=== PATIENT | male | born 1940 | race Caucasian/White ===

== ENCOUNTER 2018-10-30 19:56 | Inpatient (IN) ==
--- NOTE | 2018-10-30 20:59 | Emergency Department Note ---
Disposition Clinical Impression: Right leg swelling Altered mental status Qualifiers: Altered mental status type: unspecified Qualified Code(s): R41.82 - Altered mental status, unspecified Disposition: Admitted As Inpatient Condition: Fair Referrals: Ana Simpson MD [Primary Care Provider] - Forms: ED Satisfaction Letter, Work/School Release Time of Disposition: 22:55 General Adult HPI - General Chief complaint: ED General Medical Stated complaint: dementia worse after procedure Time Seen by Provider: 10/30/18 20:18 Source: patient, family Mode of arrival: private vehicle Limitations: no limitations Nursing Notes Reviewed: Yes Vital Signs Reviewed: Yes - History of Present Illness HPI Narrative: 77-year-old male with baseline dementia that had a urologic procedure in same day surgery today he was discharged home after receiving anesthetic, he was sent home on Azo tablets, he became increasingly agitated after he arrived at home. He was having difficulty making a left turn when he tried to make a right turn and he "crumpled" inside of his walker. He then fell a second time in a similar manner and family decided to bring him to the ED for further evaluation. Son at bedside states that he lives with his who is of a similar age and is not really able to help him get up the stairs. Son at bedside thinks that he needs to be admitted for observation, after the procedure as he seems more agitated after the anesthesia. Patient does not have any acute complaints right now except for dysuria. Pain Scale: 0 - Related Data Home Medications Medication Instructions Recorded Confirmed Atorvastatin [Lipitor] 40 mg PO HS 03/26/17 10/30/18 Gabapentin [Neurontin] 900 mg PO HS 03/26/17 10/30/18 Pantoprazole Sodium [Protonix] 40 mg PO DAILY 03/26/17 10/30/18 Pramipexole Di-HCl [Pramipexole 0.125 mg PO HS 03/26/17 10/30/18 Dihydrochloride] Sertraline [Zoloft] 50 mg PO DAILY 03/26/17 10/30/18 Memantine HCl/Donepezil HCl 1 cap PO DAILY 06/21/17 10/30/18 [Namzaric 28 mg-10 mg Capsule] Cyanocobalamin (Vitamin B-12) 1,000 mcg PO DAILY 10/30/18 10/30/18 [Vitamin B-12] Allergies Allergy/AdvReac Type Severity Reaction Status Date / Time hydrochlorothiazide AdvReac decreased Verified 10/30/18 11:15 Na Review of Systems: In addition to that documented in the HPI above, the additional ROS was obtained: Constitutional: Denies fevers or chills Eyes: Denies vision changes ENMT: Denies sore throat CV: Denies chest pain Resp: Denies SOB GI: Denies vomiting or diarrhea : Reports painful urination MSK: Reports two recent mechanical falls Skin: Denies new rashes Neuro: Denies new numbness or tingling or weakness Endocrine: Denies unexpected weight loss Heme: Denies bleeding disorders Past Medical History - Past Medical History Attestation: Yes The following information was validated with the patient. Medical history: Reports: non-contributory, atrial fibrillation, COPD, CVA, DVT, dementia, GERD, hyperlipidemia, hypertension, seizures Surgical history: Reports: cataract, other Psychiatric history: Reports: no psych history - Social History Smoking Status: Former smoker Smokeless Tobacco Status: No Alcohol use: Reports: none Drug use: Reports: none Physical Exam General: A&O x 0. No acute distress. Well developed, well nourished. Head: atraumatic, normocephalic. ENT: No conjunctival injection, no scleral icterus. PERRLA. EOMI. Oropharynx non- erythematous. mucous membranes moist. Neuro: No focal deficits, no speech deficit, no facial droop, mentating well. BUE/BLE Str 5/5. Pulm: Lungs CTAB A/P. No wheezes, rales, ronchi. Cardio: RRR no m/r/g. Chest not tender to palpation. Abd: Soft, non-distended. Normoactive bowel sounds. Non-tender to palpation. No guarding. Non rigid. Extremities: Radial pulses 2+ nancy, dorsalis pedis/posterior tibialis 2+ nancy. No LE edema. No cyanosis, clubbing. Skin: warm, dry, intact. No rashes. Psych: Appropriate mood and affect. Answers questions appropriately. Cooperative with exam. - General Limitations: no limitations General appearance: in no apparent distress Course - Reevaluation(s) Reevaluation #1: Pt was undressed to be changed and RN discovered that right leg was erythematous, swollen, and had 2+ pitting edema that is new since yesterday morning according to family. Pt has been off his plavix for the last several days in preparation for his urinary procedure that was performed today. He will need a lower extremity doppler to rule out blood clot. Time: 22:10 Vital Signs Temperature 98.8 F 10/30/18 20:08 Pulse Rate 89 10/30/18 20:08 Respiratory Rate 16 10/30/18 20:08 Blood Pressure 97/63 10/30/18 20:08 O2 Sat by Pulse Oximetry 93 10/30/18 20:08 Temperature 98.8 F 10/30/18 20:08 Pulse Rate 90 10/30/18 21:23 Respiratory Rate 18 10/30/18 21:23 Blood Pressure 142/59 10/30/18 21:23 O2 Sat by Pulse Oximetry 94 10/30/18 21:23 Oxygen Delivery Oxygen Delivery Room Air Medical Decision Making - MDM Narrative Medical decision making narrative: Patient's lab work did reveal an elevated creatinine above baseline as well as a worsening GFR, however this was not clinically significant. Head CT did not reveal any acute intracranial abnormalities. EKG did not show any acute signs of ischemia. However patient was felt to be unsafe in his current living situation, the people who care for him at home were unable to care for him in his current state. Patient was more combative after the procedure, and had worsening altered mental status from baseline dementia. Patient was admitted to the hospitalist Dr. Vo, who agreed to accept the pt to their service. Family at bedside was given an opportunity to ask questions and all of their concerns were addressed. Family at bedside agreed to the plan of care. Pt remained stable while in the department. - Medical Records Medical records reviewed: Yes I reviewed the patient's medical records. - Lab Data Lab results reviewed: Yes I reviewed the patient's lab results. Result diagrams: 10/30/18 20:53 10/30/18 20:53 Lab Results 10/30/18 10/30/18 Range/Units 20:53 20:53 WBC 10.2 D (4.3-11.1) K/mcL RBC 3.96 L (4.19-5.50) M/mcL Hgb 12.8 L (12.9-16.9) g/dL Hct 39.3 (37.5-50.1) % MCV 99.2 (83.0-100.0) fL MCH 32.3 (28.0-33.3) pg MCHC 32.6 (31.6-35.5) g/dL RDW 13.0 (11.5-14.5) % Plt Count 98 L (140-400) K/mcL MPV 10.9 (9.4-12.4) fL Immature Gran % 0.4 (0-4) % Seg Neutrophils % 87.0 % Lymphocytes % 5.6 % Monocytes % 6.8 % Eosinophils % 0.0 % Basophils % 0.2 % Neutrophils # 8.9 (1.6-8.9) K/mcL Lymphocytes # 0.6 (0.6-4.6) K/mcL Monocytes # 0.7 (0.0-1.3) K/mcL Eosinophils # 0.0 (0.0-0.6) K/mcL Basophils # 0.0 (0.0-0.2) K/mcL Sodium 147 H (136-145) mEq/L Potassium 4.8 (3.5-5.1) mEq/L Chloride 111 H (98-107) mEq/L Carbon Dioxide 23 (23-29) mEq/L BUN 36 H (8-23) mg/dL Creatinine 1.96 H (0.70-1.30) mg/dL Est GFR ( Amer) 40 L (> 60) Est GFR (Non-Af Amer) 33 L (> 60) BUN/Creatinine Ratio 18 (6-26) Glucose 144 H (70-105) mg/dL Calculated Osmolality 315 H (280-300) Calcium 9.7 (8.6-10.3) mg/dL Troponin I < 0.03 (< 0.04) ng/mL - Radiology Data Radiology results reviewed: Yes I reviewed the patient's radiology results. Chest X-Ray 10/30/18 20:53 IMPRESSION: Mild nonspecific left basilar opacities compatible with atelectasis versus pneumonia. D/ / Shane Mg MD / Shane Mg MD Interpreting Provider: Shane Mg MD Head CT 05/21/19 20:53 IMPRESSION: No acute intracranial abnormality. D/ / Debbie Carty Cha, MD / Debbie Carty Cha, MD Interpreting Provider: Debbie Carty Cha, MD - EKG Data EKG #1 EKG attestation: Yes I reviewed and interpreted this EKG. EKG results narrative: Heart rate 85, rhythm sinus, axis borderline left at -27. [place] 233 and prolonged, QRS 146 and prolonged, QTc 463. Atrial premature complexes are present with short RR intervals. Right bundle branch block. Previous EKG from 10/25/2018 does not show a right bundle branch block and does not show atrial premature complexes. There are T-wave abnormalities present in leads V2, V3, V4, 3. There is no clinically significant ST elevation or depression. Attestation Statement - Attestation Attestation: I, Morris Amezquita DO, examined this patient hisr-as-erum and my medical decision-making was reviewed with Dr. Aracelis Story, Resident Physician. I agree with the documented findings, disposition and treatment plan as described except to the extent set forth below. I personally supervised and was present for the martinez/critical portions of the procedures completed by the resident documented below. Please see my progress notes for details.
[2018-10-30 21:49] LABS: Basophils % 0.2 %; Hematocrit 39.3 % (37.5-50.1); Hemoglobin 12.8 g/dL (12.9-16.9); Immature Granulocytes % 0.4 % (0-4); Lymphocytes # 0.6 K/mcL (0.6-4.6); Lymphocytes % 5.6 %; Mean Corpuscular HGB Conc 32.6 g/dL (31.6-35.5); Mean Corpuscular Hemoglobin 32.3 pg (28.0-33.3); Mean Corpuscular Volume 99.2 fL (83.0-100.0); Mean Platelet Volume 10.9 fL (9.4-12.4); Monocytes # 0.7 K/mcL (0.0-1.3); Monocytes % 6.8 %; Neutrophils # 8.9 K/mcL (1.6-8.9); Red Blood Count 3.96 M/mcL (4.19-5.50)
[2018-10-30 21:50] LABS: Platelet Count 98 K/mcL (140-400)
--- NOTE | 2018-10-30 21:57 | Emergency Department Note ---
Disposition Clinical Impression: Altered mental status, Right leg swelling, DVT (deep venous thrombosis), Acute hypernatremia Disposition: Admitted As Inpatient Condition: Fair Referrals: Ana Simpson MD [Primary Care Provider] - Forms: ED Satisfaction Letter, Work/School Release Time of Disposition: 23:09 General Adult HPI - General Chief complaint: ED General Medical Stated complaint: dementia worse after procedure Time Seen by Provider: 10/30/18 20:18 Source: patient, family Mode of arrival: private vehicle Limitations: no limitations - History of Present Illness Pain Scale: 0 - Related Data Home Medications Medication Instructions Recorded Confirmed Atorvastatin [Lipitor] 40 mg PO HS 03/26/17 10/30/18 Gabapentin [Neurontin] 900 mg PO HS 03/26/17 10/30/18 Pantoprazole Sodium [Protonix] 40 mg PO DAILY 03/26/17 10/30/18 Pramipexole Di-HCl [Pramipexole 0.125 mg PO HS 03/26/17 10/30/18 Dihydrochloride] Sertraline [Zoloft] 50 mg PO DAILY 03/26/17 10/30/18 Memantine HCl/Donepezil HCl 1 cap PO DAILY 06/21/17 10/30/18 [Namzaric 28 mg-10 mg Capsule] Cyanocobalamin (Vitamin B-12) 1,000 mcg PO DAILY 10/30/18 10/30/18 [Vitamin B-12] Allergies Allergy/AdvReac Type Severity Reaction Status Date / Time hydrochlorothiazide AdvReac decreased Verified 10/30/18 11:15 Na Past Medical History - Past Medical History Medical history: Reports: non-contributory, atrial fibrillation, COPD, CVA, DVT, dementia, GERD, hyperlipidemia, hypertension, seizures Surgical history: Reports: cataract, other Psychiatric history: Reports: no psych history - Social History Smoking Status: Former smoker Smokeless Tobacco Status: No Alcohol use: Reports: none Drug use: Reports: none Physical Exam - General Limitations: no limitations General appearance: in no apparent distress Course Vital Signs Temperature 98.8 F 10/30/18 20:08 Pulse Rate 89 10/30/18 20:08 Respiratory Rate 16 10/30/18 20:08 Blood Pressure 97/63 10/30/18 20:08 O2 Sat by Pulse Oximetry 93 10/30/18 20:08 Temperature 98.8 F 10/30/18 20:08 Pulse Rate 90 10/30/18 21:23 Respiratory Rate 18 10/30/18 21:23 Blood Pressure 142/59 10/30/18 21:23 O2 Sat by Pulse Oximetry 94 10/30/18 21:23 Oxygen Delivery Oxygen Delivery Room Air Medical Decision Making - Lab Data Result diagrams: 10/30/18 20:53 10/30/18 20:53 Lab Results 10/30/18 10/30/18 Range/Units 20:53 20:53 WBC 10.2 D (4.3-11.1) K/mcL RBC 3.96 L (4.19-5.50) M/mcL Hgb 12.8 L (12.9-16.9) g/dL Hct 39.3 (37.5-50.1) % MCV 99.2 (83.0-100.0) fL MCH 32.3 (28.0-33.3) pg MCHC 32.6 (31.6-35.5) g/dL RDW 13.0 (11.5-14.5) % Plt Count 98 L (140-400) K/mcL MPV 10.9 (9.4-12.4) fL Immature Gran % 0.4 (0-4) % Seg Neutrophils % 87.0 % Lymphocytes % 5.6 % Monocytes % 6.8 % Eosinophils % 0.0 % Basophils % 0.2 % Neutrophils # 8.9 (1.6-8.9) K/mcL Lymphocytes # 0.6 (0.6-4.6) K/mcL Monocytes # 0.7 (0.0-1.3) K/mcL Eosinophils # 0.0 (0.0-0.6) K/mcL Basophils # 0.0 (0.0-0.2) K/mcL Sodium 147 H (136-145) mEq/L Potassium 4.8 (3.5-5.1) mEq/L Chloride 111 H (98-107) mEq/L Carbon Dioxide 23 (23-29) mEq/L BUN 36 H (8-23) mg/dL Creatinine 1.96 H (0.70-1.30) mg/dL Est GFR ( Amer) 40 L (> 60) Est GFR (Non-Af Amer) 33 L (> 60) BUN/Creatinine Ratio 18 (6-26) Glucose 144 H (70-105) mg/dL Calculated Osmolality 315 H (280-300) Calcium 9.7 (8.6-10.3) mg/dL Troponin I < 0.03 (< 0.04) ng/mL Attestation Statement - Attestation Attestation: I, Morris Amezquita DO, examined this patient [id number] and my medical decision-making was reviewed with Dr. Aracelis Story, Resident Physician. I agree with the documented findings, disposition and treatment plan as described except to the extent set forth below. I personally supervised and was present for the martinez/critical portions of the procedures completed by the resident documented below. Please see my progress notes for details. 77-year-old male presents emergency room for evaluation of progression of his dementia. Patient was evaluated today for urologic related issue and had a pro cedure performed under some type of anesthetic. Since any set worsening confusion. Family is also concerned that he had acute onset of swelling in his right leg as well as several other vague complaints. Patient is chronically demented at baseline secondary to strokes in the past. He does have a history of DVTs. The patient's family is denying any recent complaint of chest pain shortness of breath headache vision changes nausea vomiting or diarrhea. No fevers no chills. He has not had any falls trauma or injury. On physical exam the gentleman is resting in the bed. His head is atraumatic. His pupils are round reactive. He has no pain with movement of the neck. Lungs are clear. H eart is regular. Abdomen is soft. He does have mild discomfort but no point tenderness guarding or rigidity on evaluation of the abdominal exam. Extremities otherwise normal this time. Right lower extremity is slightly more swollen from the mid thigh down to the right foot. He does have palpable DP and PT pulses that are symmetrical bilaterally in both feet are normal in coloration. Detailed workup including CT the head CBC chemistry urinalysis will be completed along with Doppler study of the leg. Dependent upon the results of the imaging modalities and the workup the patient will most likely require admission. Patient is otherwise clinically stable this time. See detailed documentation of the physical exam, medical intervention, medical decision- making and disposition in the resident physician's note. No critical care provider the patient's treatment course at this time. 2245 Patient has newly elevated sodium as well as increasing creatinine. All these are after the procedures performed here today. Because of the progression of the dementia most likely secondary to medications as well as a lab abnormalities patient will be admitted for monitoring. Urinalysis and Doppler study are still pending. The hospitalist Dr. brock reviewed the case and no other questions or concerns at this time. He is aware of the lab as well as the ultrasound study being pending. He is accepted the patient there service. He will monitor the patient. Patient will be monitored here in the emergency department until the admission process is completed. Patient is otherwise clinically stable. [address] [employer] Teacher says that the patient has new clot from the groin all the way d own into the leg. Heparin standard dose will be ordered at this time. Urinalysis is still pending. Definitive management will be completed in the inpatient setting. Patient has been accepted to the hospital service started at this time.
[2018-10-30 22:08] LABS: BUN/Creatinine Ratio 18 (6-26); Blood Urea Nitrogen 36 mg/dL (8-23); Calcium 9.7 mg/dL (8.6-10.3); Carbon Dioxide 23 mEq/L (23-29); Chloride 111 mEq/L (98-107); Glucose 144 mg/dL (70-105); Osmolality,Calculated 315 (280-300); Potassium 4.8 mEq/L (3.5-5.1); Sodium 147 mEq/L (136-145); Troponin I < 0.03 ng/mL (< 0.04); eGFR For Non-African Americans 33 (> 60)
[2018-10-30] MEDS ORDERED: *HR* Heparin 5,000 UNIT/ML VIAL IVP PRN ×2 (23:08)
[2018-10-30] MEDS ORDERED: *HR* Heparin 5,000 UNIT/ML VIAL IVP ONE (23:08)
[2018-10-30 23:31] LABS: Hematocrit 37.3 % (37.5-50.1); Immature Platelets 4.9 % (1.1-6.1); Mean Corpuscular HGB Conc 32.2 g/dL (31.6-35.5); Mean Corpuscular Hemoglobin 32.1 pg (28.0-33.3); Mean Corpuscular Volume 99.7 fL (83.0-100.0); Mean Platelet Volume 10.6 fL (9.4-12.4); Red Blood Count 3.74 M/mcL (4.19-5.50)
[2018-10-30 23:45] LABS: Heparin anti-factor XA UFH 0.05 IU/mL (0.30-0.70); INR 1.3; Prothrombin Time 14.6 Seconds (9.4-12.1)
[2018-10-31] MEDS: Heparin 25,000 UNIT/250 ML D5W 25,000 UNIT/250 ML IV.SOLN IVC SCH ×2 (00:21→22:37)
[2018-10-31] MEDS ORDERED: Naloxone 0.4 MG/ML INJ IVP PRN (00:31)
--- NOTE | 2018-10-31 00:47 | Internal Med History&Physical ---
<Yelena Rodriguez E - Last Filed: 10/31/18 02:23> Date of Encounter: 10/31/18 Time of Encounter: 00:10 Internal Medicine - H&P: HPI Chief complaint: Altered mental status/agitation Admitted From: Home Plans for Post Hospital Care: Home History of present illness: Mr. Marcos is a 77 year old male with past medical history of atrial fibrillation, COPD, CVA, DVT, dementia, GERD, hyperlipidemia, hypertension, seizures. Patient presented to the ED tonight his family. Family stated that the ED physician that the patient had seemed more agitated and altered sense his bladder cancer resection earlier today. Patient received to this resection this morning under general anesthesia with no acute complications. Patient was said to have a having trouble walking since getting home as well as seeming more confused and agitated. Patient was noted to have right lower extremity swelling and Doppler indicated that he had a DVT. He was started on heparin in the ED. Patient had been off his Plavix in order to have his procedure on this morning. Venous Doppler:Right lower extremity venous duplex appears to be positive for acute DVT in the iliac, cfv, sfv, popliteal, and peroneal veins. Appears posit shady for acute SVT in the gsv and lsv. Head CT showed that there is no acute intracranial abnormality Chest x-ray showed mild nonspecific left basilar opacities compatible with atelectasis versus pneumonia EKG done in the ED showed no sign of any acute ischemia Patient had no complaints tonight on exam. He stated that he had just been feeling down and blue. He states he has been feeling more down since his seizure this morning. He also states that he did not sleep well prior to his procedure and is very tired tonight. Patient was awake and alert to person and place but not to why he was here. Patient denied any chest pain, abdominal pain, shortness of breath, dizziness/lightheadedness, weakness. Patient was admitted for DVT and ultimate mental status Social history: Patient denies tobacco use, alcohol use, illicit drug use Family history: Patient denies any pertinent family history CODE STATUS was discussed with the patient and he stated that he did not want chest compressions done if his heart were to stop and also did not want to be intubated. He stated that if his heart stops to "just let me go ". Past Med Surg Social Fam HX - Past Medical History Medical history: non-contributory, atrial fibrillation, COPD, CVA, DVT, dementia, GERD, hyperlipidemia, hypertension, seizures Additional medical history: bladder tumor. history of CVA s/p TPA with bleeding complication 2005 x2. pectus excavatum. colon polyp- hyperplastic. stroke x2. LLE DVT. allergic rhinitis. PVC's. depression. subclavian steel syn left arm. CVA brainstem. spontanious pneumothorax. stomach ulcer. aortic stenosis. bilateral toe ulcerations of unclear eitiology. diverticulosis. colon tubular adenoma. bladder tumor Psychiatric history: no psych history - Past Surgical History Surgical History: cataract, other Additional surgical history: blood clot on brain from CVA - Social History Smoking Status: Former smoker Smokeless Tobacco Status: No Alcohol use: none Drug use: none Internal Medicine - H&P: Meds Atorvastatin [Lipitor] 40 mg PO HS 03/26/17 [History] Gabapentin [Neurontin] 900 mg PO HS 03/26/17 [History] Pantoprazole Sodium [Protonix] 40 mg PO DAILY 03/26/17 [History] Pramipexole Di-HCl [Pramipexole Dihydrochloride] 0.125 mg PO HS 03/26/17 [History] Sertraline [Zoloft] 50 mg PO DAILY 03/26/17 [History] Memantine HCl/Donepezil HCl [Namzaric 28 mg-10 mg Capsule] 1 cap PO DAILY 06/21/17 [History] Cyanocobalamin (Vitamin B-12) [Vitamin B-12] 1,000 mcg PO DAILY 10/30/18 [History] Allergy/AdvReac Type Severity Reaction Status Date / Time hydrochlorothiazide AdvReac decreased Verified 10/30/18 11:15 Na All Systems PM: A 10-system review of systems was performed and is negative for pertinent findings except as documented above in the HPI. - Constitutional Constitutional: no anorexia, no chills, no fever(s), no weakness - EENT Eyes: no change in vision, no seeing flashes Nose, mouth and throat: no dysphagia, no nasal congestion, no sinus pain, no s inus pressure, no sore throat - Cardiovascular Cardiovascular ROS IM: edema (Right leg), no chest pain, no dyspnea - Respiratory Respiratory: no cough, no dyspnea, no wheezing, no change in phlegm color - Gastrointestinal Gastrointestinal: no abdominal pain, no constipation, no diarrhea, no nausea, no vomiting - Genitourinary Genitourinary ROS male: urinary urgency, no flank pain, no urinary frequency, no urinary hesitancy - Musculoskeletal Musculoskeletal ROS IM: no arthralgias, no back pain, no joint swelling - Integumentary Integumentary IM: no new lesions, no pruritus, no rash - Constitutional Vitals: Temp Pulse Resp BP Pulse Ox 98.8 F 82 18 107/86 94 10/30/18 20:08 10/31/18 00:13 10/31/18 00:13 10/31/18 00:13 10/31/18 00:13 Exam: General: Alert and oriented to person and place but not to disposition, answers questions appropriately, no acute distress Head: normocephalic, atraumatic Eyes: CACHORRO, no icterus Mouth: Mucous membranes moist Neck: Trachea midline, no lymphadenopathy Cardio: RRR, no mumurs, rubs, or gallops Respiratory: CTAB, no wheezing, rhonchi, rales Abd: normal bowel sounds, no gaurding or rigidity Extremties: Right lower extremity swelling noted from the groin to the ankle, nonpitting, nontender. pulses equal bilaterally, warm Skin: warm, dry, intact Internal Med - H&P Results - Labs CBC & Chem 7: 10/30/18 23:19 10/30/18 20:53 Labs: Short CBC 10/30/18 10/30/18 Range/Units 20:53 23:19 WBC 10.2 D 9.6 (4.3-11.1) K/mcL Hgb 12.8 L 12.0 L (12.9-16.9) g/dL Hct 39.3 37.3 L (37.5-50.1) % Plt Count 98 L 92 L (140-400) K/mcL Neutrophils # 8.9 (1.6-8.9) K/mcL BMP 10/30/18 20:53 Sodium 147 H Potassium 4.8 Chloride 111 H Carbon Dioxide 23 BUN 36 H Creatinine 1.96 H Glucose 144 H Calcium 9.7 Cardiac Enzymes 10/30/18 Range/Units 20:53 Troponin I < 0.03 (< 0.04) ng/mL - Impressions ITS Impressions Chest X-Ray 10/30/18 20:53 IMPRESSION: Mild nonspecific left basilar opacities compatible with atelectasis versus pneumonia. D/ / Shane Mg MD / Shane Mg MD Interpreting Provider: Shane Mg MD Head CT 10/30/18 20:53 IMPRESSION: No acute intracranial abnormality. D/ / Debbie Carty Cha, MD / Debbie Carty Cha, MD Interpreting Provider: Debbie Carty Cha, MD - Assessment and Plan (1) Altered mental status Current Visit: Yes Status: Acute Assessment and plan: Patient had been more agitated since returning home from procedure this morning Patient had bladder cancer biopsy done this morning under general anesthesia Family reported the ED physician that the patient was more agitated and was having trouble getting around when he got home today. Patient was pleasant at bedside with only complaint of being feeling down/blue This is likely secondary to anesthesia but could also be due to laboratory abnormalities including hypernatremia We will continue to monitor patient We will restart patient's home dementia medications We will correct patient's sodium Qualifiers: Altered mental status type: unspecified Qualified Code(s): R41.82 - Altered mental status, unspecified (2) DVT (deep venous thrombosis) Current Visit: Yes Status: Acute Assessment and plan: Patient was noted to have right leg swelling Family stated that this started one day ago Patient has been off his Plavix due to his bladder cancer biopsy done this morning Venous Doppler showed Right lower extremity venous duplex appears to be positive for acute DVT in the iliac, cfv, sfv, popliteal, and peroneal veins. Appears positive for acute SVT in the gsv and lsv. Heparin drip started Qualifiers: DVT location: lower extremity Affected thrombotic vein of extremity: other lower extremity vein Chronicity: acute Laterality: right Qualified Code(s): I82.491 - Acute embolism and thrombosis of other specified deep vein of right lower extremity (3) Acute hypernatremia Current Visit: Yes Status: Acute Assessment and plan: Patient's sodium noted to be 147 today Patient is approximately 3 L down on fluids Start D5 W at a rate of 250 mils per hour with sodium check after one hour after starting fluids Once patient's sodium is low 145 we will decrease rate to 90 mils per hour until corrected to 140 Sodium checks every hour (4) CAD (coronary artery disease) Current Visit: Yes Status: Acute Assessment and plan: Patient on home atorvastatin We will restart patient's home medication Qualifiers: Coronary Disease-Associated Artery/Lesion type: unspecified vessel or lesion type [place] vs. transplanted heart: [place] heart Associated angina: without angina Qualified Code(s): I25.10 - Atherosclerotic heart disease of [place] coronary artery without angina pectoris (5) Dementia Current Visit: Yes Status: Acute Assessment and plan: Patient has history of dementia On Mementine HCL/Donepezil HCL, Pramipexole Di-HVL, Sertraline We will restart patient's home medications Qualifiers: Dementia type: unspecified type Dementia behavioral disturbance: without behavioral disturbance Qualified Code(s): F03.90 - Unspecified dementia withou t behavioral disturbance (6) GERD (gastroesophageal reflux disease) Current Visit: Yes Status: Acute Assessment and plan: Patient on Protonix 40 mg daily We will restart his medication Qualifiers: Esophagitis presence: esophagitis presence not specified Qualified Code(s): K21.9 - Gastro-esophageal reflux disease without esophagitis (7) WILBUR (acute kidney injury) Current Visit: Yes Status: Acute Assessment and plan: Possibly due to patient's fluid status We will replace fluids as above Continue monitor creatinine (8) DVT prophylaxis Current Visit: Yes Status: Acute Assessment and plan: Patient currently on heparin drip for DVT - Time Spent With Patient Total time spent is greater than 50% in coordination of care (as documented) at patient's floor/unit and/or counseling patient: <Tammy Rendon A - Last Filed: 10/31/18 03:51> Date of Encounter: 10/31/18 Internal Medicine - H&P: HPI History of present illness: Mr. Marcos is a 77 year old male All Systems PM: A 10-system review of systems was performed and is negative for pertinent findings except as documented above in the HPI. - Constitutional Vitals: Temp Pulse Resp BP Pulse Ox 98.1 F 73 16 96/58 94 10/31/18 01:26 10/31/18 01:26 10/31/18 01:26 10/31/18 01:26 10/31/18 01:26 Internal Med - H&P Results - Labs CBC & Chem 7: 10/30/18 23:19 10/30/18 20:53 Labs: Short CBC 10/30/18 10/30/18 Range/Units 20:53 23:19 WBC 10.2 D 9.6 (4.3-11.1) K/mcL Hgb 12.8 L 12.0 L (12.9-16.9) g/dL Hct 39.3 37.3 L (37.5-50.1) % Plt Count 98 L 92 L (140-400) K/mcL Neutrophils # 8.9 (1.6-8.9) K/mcL BMP 10/30/18 20:53 Sodium 147 H Potassium 4.8 Chloride 111 H Carbon Dioxide 23 BUN 36 H Creatinine 1.96 H Glucose 144 H Calcium 9.7 Cardiac Enzymes 10/30/18 Range/Units 20:53 Troponin I < 0.03 (< 0.04) ng/mL - Impressions ITS Impressions Chest X-Ray 10/30/18 20:53 IMPRESSION: Mild nonspecific left basilar opacities compatible with atelectasis versus pneumonia. D/ / Shane Mg MD / Shane Mg MD Interpreting Provider: Shane Mg MD Head CT 10/30/18 20:53 IMPRESSION: No acute intracranial abnormality. D/ / Debbie Carty Cha, MD / Debbie Carty Cha, MD Interpreting Provider: Debbie Catry Cha, MD - Time Spent With Patient Total time spent is greater than 50% in coordination of care (as documented) at patient's floor/unit and/or counseling patient: - Attending Attestation I performed a history and physical examination of the patient and discussed their management with the resident. I reviewed the resident's note and agree with the documented plan of care. In short patient is a 69-year-old male with a past medical history of atrial fibrillation, COPD, CVA, dementia and DVT among others who presented to the ED with change in mental status from baseline. No family members were at bedside at the time of my assessment so I was unable to ascertain what patient's baseline is. Per report patient had resection of a bladder tumor earlier today under some sort of anesthetic. Patient apparently went home afterwards and per family members appeared to be agitated and confused and was subsequently brought into the ED for further evaluation. On arrival patient was afebrile, hemodynamically stable. Laboratory workup was relatively unremarkable aside from mild hypernatremia 147 and mild elevation in patient's creatinine from baseline. Imaging of the head was unremarkable and chest x-ray did not show any acute pulmonary abnormalities. Further assessment in the ED noted right lower extremity swelling markedly more than the left. Doppler was performed which was positive for DVT. Patient was subsequent restarted on heparin drip. On my assessment patient is alert oriented 1. No evidence of any focal deficits. Low clinical suspicion for an infectious etiology. Suspect acute encephalopathy on top of patient's normal baseline dementia is likely secondary to anesthetic in the setting of recent procedure earlier this morning. Dehydration and mild degree of uremia may be contributed to patient's AMS. Given patient's hypernatremia and elevated creatinine will give D5 water to correct hypernatremia based on his fluid deficit of 2-3 L. We will check sodium every 1-2 hours. We will obtain a urinalysis. Continue heparin drip for DVT.
[2018-10-31] MEDS: D5% in Water 1,000 ML IVC SCH ×4 (02:40→21:07)
[2018-10-31 04:41] LABS: Immature Granulocytes % 0.4 % (0-4); Mean Corpuscular HGB Conc 32.5 g/dL (31.6-35.5); Segmented Neutrophils % 80.7 %
[2018-10-31 04:43] LABS: Basophils % 0.1 %; Eosinophils % 0.4 %; Hematocrit 33.8 % (37.5-50.1); Immature Platelets 4.5 % (1.1-6.1); Lymphocytes # 0.9 K/mcL (0.6-4.6); Lymphocytes % 9.6 %; Mean Corpuscular Hemoglobin 32.3 pg (28.0-33.3); Mean Corpuscular Volume 99.1 fL (83.0-100.0); Mean Platelet Volume 11.3 fL (9.4-12.4); Monocytes # 0.8 K/mcL (0.0-1.3); Monocytes % 8.8 %; Neutrophils # 7.2 K/mcL (1.6-8.9); Red Blood Count 3.41 M/mcL (4.19-5.50); Red Cell Distribution Width 12.9 % (11.5-14.5)
[2018-10-31 04:46] LABS: Platelet Count 91 K/mcL (140-400)
[2018-10-31 05:01] LABS: Albumin 3.9 g/dL (3.5-5.7); Albumin/Globulin Ratio 1.9 (1.1-2.2); Bilirubin,Total 0.6 mg/dL (0.3-1.0); Calcium 9.1 mg/dL (8.6-10.3); Globulin 2.1 g/dL (2.4-3.5); Potassium 3.9 mEq/L (3.5-5.1)
--- NOTE | 2018-10-31 09:50 | Urology - Consult Note ---
<Daphnie Johnson N - Last Filed: 10/31/18 09:47> Date of Encounter: 10/31/18 Time of Encounter: 09:30 - Assessment and Plan (1) Bladder tumor Current Visit: Yes Status: Acute Assessment and plan: Patient is a 77-year-old male who presents one day status post TURBT with Dr. Devries. Patient was diagnosed with DVT of the right lower extremity yesterday afternoon, and he was subsequently started on Heparin drip. We may expect some increased hematuria due to anticoagulation, although, resection site is small. Patient is currently voiding without difficulty. We will plan to obtain a bladder scan, and if this is reassuring, he may continue without a catheter. Urology CN:HPI Consult date: 10/31/18 Reason for consult Urology: Other (postoperative day one from TURBT; Acute RLE DVT on anticoagulation) Requesting physician: Chris Vasquez History of present illness: Patient is a 77-year-old male with a past medical history significant for dementia, CVA, DVT, and atrial fibrillation who presents one day postoperative from a small resection TURBT with complaints of altered mental status and right lower extremity edema and pain. Patient's son reports patient experienced worsening mentation with agitation and difficulty walking. Patient was evaluated in the emergency department and found to have a DVT of the right lower extremity. Patient was subsequently placed on heparin drip and admitted to the hospitalist service. Patient underwent small transurethral resection of bladder tumor with mitomycin instillation yesterday morning with Dr. Devries. Patient sustained no complication with surgery, his postoperative course was relatively unremarkable, and he was dismissed in satisfactory condition. Patient is unable to answer pointed questions, but nursing staff reports gross hematuria in attends briefs. Family history noncontributory. Bladder scan is pending. Past Med Surg Social Fam HX - Past Medical History Medical history: non-contributory, atrial fibrillation, COPD, CVA, DVT, dementia, GERD, hyperlipidemia, hypertension, seizures Additional medical history: bladder tumor. history of CVA s/p TPA with bleeding complication 2005 x2. pectus excavatum. colon polyp- hyperplastic. stroke x2. LLE DVT. allergic rhinitis. PVC's. depression. subclavian steel syn left arm. CVA brainstem. spontanious pneumothorax. stomach ulcer. aortic stenosis. bilateral toe ulcerations of unclear eitiology. diverticulosis. colon tubular adenoma. bladder tumor Psychiatric history: no psych history - Past Surgical History Surgical History: cataract, other Additional surgical history: blood clot on brain from CVA - Social History Smoking Status: Former smoker Smokeless Tobacco Status: No Alcohol use: none Drug use: none - Additional Family History Additional family history: No known documented family history of malignancy Medications and Allergies Atorvastatin [Lipitor] 40 mg PO HS 03/26/17 [History] Gabapentin [Neurontin] 900 mg PO HS 03/26/17 [History] Pantoprazole Sodium [Protonix] 40 mg PO DAILY 03/26/17 [History] Pramipexole Di-HCl [Pramipexole Dihydrochloride] 0.125 mg PO HS 03/26/17 [History] Sertraline [Zoloft] 50 mg PO DAILY 03/26/17 [History] Memantine HCl/Donepezil HCl [Namzaric 28 mg-10 mg Capsule] 1 cap PO DAILY 06/21/17 [History] Cyanocobalamin (Vitamin B-12) [Vitamin B-12] 1,000 mcg PO DAILY 10/30/18 [History] Allergy/AdvReac Type Severity Reaction Status Date / Time hydrochlorothiazide AdvReac decreased Verified 10/30/18 11:15 Na Review of Systems ROS unobtainable: due to mental status Exam Initial Vital Signs Temp Pulse Resp BP Pulse Ox 98.8 F 89 16 97/63 93 10/30/18 20:08 10/30/18 20:08 10/30/18 20:08 10/30/18 20:08 10/30/18 20:08 - General physical appearance Present: no distress, no pain - Eyes Present: PERRL, normal ocular movement - ENT Present: no congestion, decreased hearing - Neck Present: no masses, trachea midline, no lymphadenopathy - Respiratory Present: normal respiratory effort - Cardiovascular Cardiovascular exam IM: RRR - Abdomen Abdomen: Present: soft, non tender. Absent: distended - Genitourinary other (blood tinged urine in attends; no clots identified ) - Integumentary Present: no rash, no abnormal pigmentation - Neurologic Present: disoriented, confused - Musculoskeletal Present: other (normal posture; RLE erythma and edema ) Urology Results - Labs 10/31/18 04:16 10/31/18 08:27 Abnormal lab results RBC 3.41 M/mcL (4.19-5.50) L 10/31/18 04:16 Hgb 11.0 g/dL (12.9-16.9) L 10/31/18 04:16 Hct 33.8 % (37.5-50.1) L 10/31/18 04:16 Plt Count 91 K/mcL (140-400) L 10/31/18 04:16 PT 14.6 Seconds (9.4-12.1) H 10/30/18 23:19 APTT 23.8 Seconds (26.0-36.0) L 10/30/18 23:19 Heparin Anti-Xa, Unfract 1.52 IU/mL (0.30-0.70) H* 10/31/18 07:13 Sodium 146 mEq/L (136-145) H 10/31/18 04:16 Chloride 111 mEq/L (98-107) H 10/31/18 04:16 BUN 37 mg/dL (8-23) H 10/31/18 04:16 1.86 mg/dL (0.70-1.30) H 10/31/18 04:16 Est GFR ( Amer) 43 (> 60) L 10/31/18 04:16 Est GFR (Non-Af Amer) 35 (> 60) L 10/31/18 04:16 Glucose 181 mg/dL (70-105) H 10/31/18 04:16 315 (280-300) H 10/31/18 04:16 ALT 4 Units/L (7-52) L 10/31/18 04:16 6.0 g/dL (6.4-8.9) L 10/31/18 04:16 2.1 g/dL (2.4-3.5) L 10/31/18 04:16 Diabetes panel 10/30/18 10/31/18 10/31/18 Range/Units 20:53 04:16 08:27 Sodium 147 H 146 H 143 (136-145) mEq/L Potassium 4.8 3.9 (3.5-5.1) mEq/L Chloride 111 H 111 H (98-107) mEq/L Carbon Dioxide 23 25 (23-29) mEq/L BUN 36 H 37 H (8-23) mg/dL Creatinine 1.96 H 1.86 H (0.70-1.30) mg/dL Glucose 144 H 181 H (70-105) mg/dL Calcium 9.7 9.1 (8.6-10.3) mg/dL AST 22 (13-39) Units/L ALT 4 L (7-52) Units/L Alkaline Phosphatase 73 (34-104) Units/L Albumin 3.9 (3.5-5.7) g/dL Calcium panel 10/30/18 10/31/18 Range/Units 20:53 04:16 Calcium 9.7 9.1 (8.6-10.3) mg/dL Phosphorus 3.0 (2.7-4.5) mg/dL Albumin 3.9 (3.5-5.7) g/dL Pituitary panel 10/30/18 10/31/18 10/31/18 Range/Units 20:53 04:16 08:27 Sodium 147 H 146 H 143 (136-145) mEq/L Potassium 4.8 3.9 (3.5-5.1) mEq/L Chloride 111 H 111 H (98-107) mEq/L Carbon Dioxide 23 25 (23-29) mEq/L BUN 36 H 37 H (8-23) mg/dL Creatinine 1.96 H 1.86 H (0.70-1.30) mg/dL Glucose 144 H 181 H (70-105) mg/dL Calcium 9.7 9.1 (8.6-10.3) mg/dL Adrenal panel 10/30/18 10/31/18 10/31/18 Range/Units 20:53 04:16 08:27 Sodium 147 H 146 H 143 (136-145) mEq/L Potassium 4.8 3.9 (3.5-5.1) mEq/L Chloride 111 H 111 H (98-107) mEq/L Carbon Dioxide 23 25 (23-29) mEq/L BUN 36 H 37 H (8-23) mg/dL Creatinine 1.96 H 1.86 H (0.70-1.30) mg/dL Glucose 144 H 181 H (70-105) mg/dL Calcium 9.7 9.1 (8.6-10.3) mg/dL Total Bilirubin 0.6 (0.3-1.0) mg/dL AST 22 (13-39) Units/L ALT 4 L (7-52) Units/L Alkaline Phosphatase 73 (34-104) Units/L Albumin 3.9 (3.5-5.7) g/dL All other labs normal. Consult Discharge Plan - Plan Referrals: Ana Simpson MD [Primary Care Provider] - <José Luis Rashid W - Last Filed: 10/31/18 15:31> Date of Encounter: 10/31/18 - Assessment and Plan (1) Bladder tumor Current Visit: Yes Status: Acute Assessment and plan: Patient seen and examined independently. History, review of systems and physical exam findings of PA verified. All pertinent imaging reviewed. I am in agreement with the assessment and plan as outlined by our Urologic Surgery Department Physician Therapist Rrt, Alex. Case discussed with family as well as hospitalist Dr. Gilbert. Avoid catheterization on this patient voiding to completion. Anticipate a mild to moderate amount of hematuria with initiation of anticoagulation 24 hours after transurethral resection of bladder tumor. (2) DVT (deep venous thrombosis) Current Visit: Yes Status: Acute Assessment and plan: Patient developed multiple right lower extremity DVTs. He started on active and coagulation with heparin drip via hospitalist service. This certainly complicates his post TURBT course as it potentiates the expected hematuria. Plan: Appreciate medical evaluation and management. We will follow along with you Qualifiers: DVT location: lower extremity Affected thrombotic vein of extremity: other lower extremity vein Chronicity: acute Laterality: right Qualified Code(s): I82.491 - Acute embolism and thrombosis of other specified deep vein of right lower extremity (3) Hematuria Current Visit: Yes Status: Acute Assessment and plan: Secondary to TURBT and initiation of anticoagulation. Hopefully, this will be self-limited. Plan: Following. Qualifiers: Hematuria type: gross Qualified Code(s): R31.0 - Gross hematuria Exam Initial Vital Signs Temp Pulse Resp BP Pulse Ox 98.8 F 89 16 97/63 93 10/30/18 20:08 10/30/18 20:08 10/30/18 20:08 10/30/18 20:08 10/30/18 20:08 Urology Results - Labs 10/31/18 11:21 10/31/18 08:27 Abnormal lab results RBC 3.41 M/mcL (4.19-5.50) L 10/31/18 04:16 Hgb 11.2 g/dL (12.9-16.9) L 10/31/18 11:21 Hct 34.4 % (37.5-50.1) L 10/31/18 11:21 Plt Count 91 K/mcL (140-400) L 10/31/18 04:16 PT 14.6 Seconds (9.4-12.1) H 10/30/18 23:19 APTT 23.8 Seconds (26.0-36.0) L 10/30/18 23:19 Heparin Anti-Xa, Unfract 1.52 IU/mL (0.30-0.70) H* 10/31/18 07:13 Sodium 146 mEq/L (136-145) H 10/31/18 04:16 Chloride 111 mEq/L (98-107) H 10/31/18 04:16 BUN 37 mg/dL (8-23) H 10/31/18 04:16 1.86 mg/dL (0.70-1.30) H 10/31/18 04:16 Est GFR ( Amer) 43 (> 60) L 10/31/18 04:16 Est GFR (Non-Af Amer) 35 (> 60) L 10/31/18 04:16 Glucose 181 mg/dL (70-105) H 10/31/18 04:16 315 (280-300) H 10/31/18 04:16 ALT 4 Units/L (7-52) L 10/31/18 04:16 6.0 g/dL (6.4-8.9) L 10/31/18 04:16 2.1 g/dL (2.4-3.5) L 10/31/18 04:16 Diabetes panel 10/30/18 10/31/18 10/31/18 Range/Units 20:53 04:16 08:27 Sodium 147 H 146 H 143 (136-145) mEq/L Potassium 4.8 3.9 (3.5-5.1) mEq/L Chloride 111 H 111 H (98-107) mEq/L Carbon Dioxide 23 25 (23-29) mEq/L BUN 36 H 37 H (8-23) mg/dL Creatinine 1.96 H 1.86 H (0.70-1.30) mg/dL Glucose 144 H 181 H (70-105) mg/dL Calcium 9.7 9.1 (8.6-10.3) mg/dL AST 22 (13-39) Units/L ALT 4 L (7-52) Units/L Alkaline Phosphatase 73 (34-104) Units/L Albumin 3.9 (3.5-5.7) g/dL Calcium panel 10/30/18 10/31/18 Range/Units 20:53 04:16 Calcium 9.7 9.1 (8.6-10.3) mg/dL Phosphorus 3.0 (2.7-4.5) mg/dL Albumin 3.9 (3.5-5.7) g/dL Pituitary panel 10/30/18 10/31/18 10/31/18 Range/Units 20:53 04:16 08:27 Sodium 147 H 146 H 143 (136-145) mEq/L Potassium 4.8 3.9 (3.5-5.1) mEq/L Chloride 111 H 111 H (98-107) mEq/L Carbon Dioxide 23 25 (23-29) mEq/L BUN 36 H 37 H (8-23) mg/dL Creatinine 1.96 H 1.86 H (0.70-1.30) mg/dL Glucose 144 H 181 H (70-105) mg/dL Calcium 9.7 9.1 (8.6-10.3) mg/dL Adrenal panel 10/30/18 10/31/18 10/31/18 Range/Units 20:53 04:16 08:27 Sodium 147 H 146 H 143 (136-145) mEq/L Potassium 4.8 3.9 (3.5-5.1) mEq/L Chloride 111 H 111 H (98-107) mEq/L Carbon Dioxide 23 25 (23-29) mEq/L BUN 36 H 37 H (8-23) mg/dL Creatinine 1.96 H 1.86 H (0.70-1.30) mg/dL Glucose 144 H 181 H (70-105) mg/dL Calcium 9.7 9.1 (8.6-10.3) mg/dL Total Bilirubin 0.6 (0.3-1.0) mg/dL AST 22 (13-39) Units/L ALT 4 L (7-52) Units/L Alkaline Phosphatase 73 (34-104) Units/L Albumin 3.9 (3.5-5.7) g/dL All other labs normal.
--- NOTE | 2018-10-31 10:47 | Internal Med Progress Note ---
Hospitalist Progress Note - Encounter Date of Encounter: 10/31/18 Time of Encounter: 10:00 - Subjective Interval History: Mr. Marcos is a 77 year old male with past medical history of atrial fibrillation not on anti coag, COPD, CVA, DVT, advanced dementia, GERD, hyperlipidemia, hypertension, seizures who recently found to have bladder tumor and went for TURBT with Dr. Devries on 10/30/18, after the procedure pt went home started c/o Rt leg swelling and pain. He was brought back to ER. In the ER his venous doppler of Rt leg showed acute DVT in the iliac, cfv, sfv, popliteal, and peroneal veins. He was admitted in the hospital and placed him on heparin gtt. He still have hematuria. He does have urinary incontinence too. Pt is still confused and demented which could be he is at his baseline mentation johnson. He denied any Abd pain / Chest pain. His Rt leg swelling and pain seems to be better today. - Exam Vitals: Temp Pulse Resp BP Pulse Ox 98.6 F 62 17 117/56 92 10/31/18 06:44 10/31/18 06:44 10/31/18 06:44 10/31/18 06:44 10/31/18 06:44 Exam: Gen: Alert, awake, Oriented to self only.. Pleasantly demented. Chest: Diminished breath sounds B/L, No wheezing, No crackles, No rales Heart: S1S2+ RRR No murmurs Abd: Soft, NT, BS +, No organomegaly Ext: mild edema, warm to touch and tenderness in Rt leg, pulses are palpable and diminished. Neuro : demented Skin: No rash. - Assessment and Plan (1) DVT (deep venous thrombosis) Current Visit: Yes Status: Acute Assessment and Plan: Acute DVT in Rt leg complicated pt due to possible bladder malignancy Need to f.u with Heme Onc and Urology as an out pt about path results and further care regarding bladder tumor cont heparin gtt for now since we need to close monitoring his hematuria eventually will switch him to Xarelto Cont close monitoring H/H Denied any CP / SOB (2) Hematuria Current Visit: Yes Status: Acute Assessment and Plan: Mostly due to y/d procedure cont close monitoring of Hb If Hb drops below8 will transfuse him since he does have significant cardiac history pt is able to void ok.. No need of [place] now appreciate urology recommendations (3) Acute encephalopathy Current Visit: Yes Status: Acute Assessment and Plan: Could be due to metabolic encephalopathy as well as due to underlying dementia cont close monitoring sitter as needed high risk for sun down syndrome will start him on Haldol PO PRN (4) Bladder tumor Current Visit: Yes Status: Acute Assessment and Plan: s/p TURBT by Dr. Devries on 10/30/18 consulted Urology for further f/u (5) CAD (coronary artery disease) Current Visit: Yes Status: Chronic Assessment and Plan: Held ASA and Plavix due to Hematuria resumed other home meds (6) Dementia Current Visit: Yes Status: Acute (7) GERD (gastroesophageal reflux disease) Current Visit: Yes Status: Chronic Assessment and Plan: on PPI (8) CKD (chronic kidney disease) stage 3, GFR 30-59 ml/min Current Visit: Yes Status: Acute Assessment and Plan: Stable Cr at baseline cont close monitoring - Time Spent with Patient Total time spent is greater than 50% in coordination of care (as documented) at patient's floor/unit and/or counseling patient: Internal Medicine: Result - Labs CBC & Chem 7: 10/31/18 04:16 10/31/18 08:27 Labs: Short CBC 10/30/18 10/30/18 10/31/18 Range/Units 20:53 23:19 04:16 WBC 10.2 D 9.6 8.9 (4.3-11.1) K/mcL Hgb 12.8 L 12.0 L 11.0 L (12.9-16.9) g/dL Hct 39.3 37.3 L 33.8 L (37.5-50.1) % Plt Count 98 L 92 L 91 L (140-400) K/mcL Neutrophils # 8.9 7.2 (1.6-8.9) K/mcL BMP 10/30/18 10/31/18 10/31/18 20:53 04:16 08:27 Sodium 147 H 146 H 143 Potassium 4.8 3.9 Chloride 111 H 111 H Carbon Dioxide 23 25 BUN 36 H 37 H Creatinine 1.96 H 1.86 H Glucose 144 H 181 H Calcium 9.7 9.1 Cardiac Enzymes 10/30/18 Range/Units 20:53 Troponin I < 0.03 (< 0.04) ng/mL Liver Function 10/31/18 Range/Units 04:16 Total Bilirubin 0.6 (0.3-1.0) mg/dL AST 22 (13-39) Units/L ALT 4 L (7-52) Units/L Alkaline Phosphatase 73 (34-104) Units/L Albumin 3.9 (3.5-5.7) g/dL - ABG Interpretation ABG results: PT/INR, D-dimer PT 14.6 Seconds (9.4-12.1) H 10/30/18 23:19 - Impressions Impressions Chest X-Ray 10/30/18 20:53 IMPRESSION: Mild nonspecific left basilar opacities compatible with atelectasis versus pneumonia. D/ / Shane Mg MD / Shane Mg MD Interpreting Provider: Shane Mg MD Head CT 10/30/18 20:53 IMPRESSION: No acute intracranial abnormality. D/ / Debbie Carty Cha, MD / Debbie Carty Cha, MD Interpreting Provider: Debbie Carty Cha, MD Consult Discharge Plan - Plan Referrals: Ana Simpson MD [Primary Care Provider] - (1) DVT (deep venous thrombosis) Qualifiers: DVT location: lower extremity Affected thrombotic vein of extremity: other lower extremity vein Chronicity: acute Laterality: right Qualified Code(s): I82.491 - Acute embolism and thrombosis of other specified deep vein of right lower extremity (5) CAD (coronary artery disease) Qualifiers: Coronary Disease-Associated Artery/Lesion type: unspecified vessel or lesion type [place] vs. transplanted heart: [place] heart Associated angina: without angina Qualified Code(s): I25.10 - Atherosclerotic heart disease of [place] coronary artery without angina pectoris (6) Dementia Qualifiers: Dementia type: unspecified type Dementia behavioral disturbance: without behavioral disturbance Qualified Code(s): F03.90 - Unspecified dementia without behavioral disturbance (7) GERD (gastroesophageal reflux disease) Qualifiers: Esophagitis presence: esophagitis presence not specified Qualified Code(s): K21.9 - Gastro-esophageal reflux disease without esophagitis
[2018-10-31 11:37] LABS: Hematocrit 34.4 % (37.5-50.1); Hemoglobin 11.2 g/dL (12.9-16.9)
--- NOTE | 2018-10-31 12:34 | Electrocardiograph Report ---
[facility] Test Date: 2018-10-30 Pat Name: Omaira Marcos Department: [id number] Room: 3B12 Gender: M Stock Dealer: : [id number] Requested By: Aracelis Story Order Number: [id number] Reading MD: Fransisco Skinner Measurements Intervals [place] Rate: 85 P: 7 OK: 233 QRS: -27 QRSD: 146 T: -49 QT: 389 QTc: 463 Interpretive Statements Sinus rhythm Atrial premature complexes Prolonged OK interval Probable left atrial enlargement Right bundle branch block Electronically Signed On 10-31-2018 12:32:13 EDT by Fransisco Skinner
[2018-10-31 18:35] LABS: Bilirubin,Urine Moderate (Negative); Blood,Urine Large (Negative); Clarity,Urine Turbid (Clear); Color,Urine Red (Yellow); Glucose,Urine (UA) Normal (Normal); Ketones,Urine Trace mg/dL (Negative); Leukocyte Esterase,Urine Small (Negative); Nitrite,Urine Positive (Negative); PH,Urine 5.5 pH Units (5.0-8.0); Protein,Urine 100 mg/dL (Neg-Trace); Specific Gravity,Urine 1.026 (1.010-1.025); Urobilinogen,Urine Normal (Normal)
[2018-10-31 18:44] LABS: Bacteria,Urine None Seen per hpf (None-Few); Hyaline Casts,Urine None Seen per lpf (None-Few); RBC,Urine TNTC per hpf (0-3); Squamous Epithelial Cell,Urine Many per lpf (None-Few); WBC,Urine 15-30 per hpf (0-3)
[2018-10-31 20:51] LABS: Hematocrit 36.8 % (37.5-50.1)
[2018-10-31] MEDS: Gabapentin 300 MG CAPSULE PO SCH (21:09)
[2018-10-31] MEDS ORDERED: Acetaminophen 325 MG TABLET PO PRN (23:33)
[2018-11-01 00:29] LABS: Monocytes % 6.2 %; Red Blood Count 3.46 M/mcL (4.19-5.50)
[2018-11-01 00:31] LABS: Basophils # 0.1 K/mcL (0.0-0.2); Basophils % 0.6 %; Eosinophils # 0.2 K/mcL (0.0-0.6); Eosinophils % 2.3 %; Hematocrit 34.1 % (37.5-50.1); Hemoglobin 11.1 g/dL (12.9-16.9); Immature Granulocytes % 0.2 % (0-4); Immature Platelets 5.3 % (1.1-6.1); Lymphocytes # 1.3 K/mcL (0.6-4.6); Lymphocytes % 15.2 %; Mean Corpuscular HGB Conc 32.6 g/dL (31.6-35.5); Mean Corpuscular Hemoglobin 32.1 pg (28.0-33.3); Mean Corpuscular Volume 98.6 fL (83.0-100.0); Mean Platelet Volume 10.9 fL (9.4-12.4); Monocytes # 0.5 K/mcL (0.0-1.3); Red Cell Distribution Width 12.6 % (11.5-14.5); Segmented Neutrophils % 75.5 %
[2018-11-01 00:32] LABS: Neutrophils # 6.3 K/mcL (1.6-8.9); Platelet Count 91 K/mcL (140-400)
[2018-11-01 00:46] LABS: Calcium 8.5 mg/dL (8.6-10.3); Magnesium 1.7 mg/dL (1.6-2.6); Potassium 3.9 mEq/L (3.5-5.1)
[2018-11-01] MEDS: D5% in Water 1,000 ML IVC SCH ×2 (04:28→07:20)
[2018-11-01] MEDS: Cyanocobalamin (B-12) 1,000 MCG TABLET PO SCH (07:19)
[2018-11-01] MEDS: Heparin 25,000 UNIT/250 ML D5W 25,000 UNIT/250 ML IV.SOLN IVC SCH (07:21)
--- NOTE | 2018-11-01 08:35 | Urology Progress Note ---
Date of Encounter: 11/01/18 Time of Encounter: 08:10 - Assessment and Plan (1) Bladder tumor Current Visit: Yes Status: Acute Assessment and plan: Patient is a 77-year-old male who presents 2 days status post 3cm TURBT and bilateral retrograde pyelogram. Bladder tumor pathology is pending. Patient is remarkably confused, and he is unable to participate in active conversation. Nurse reports patient is voiding well, and urine appears to be clearing. (2) DVT (deep venous thrombosis) Current Visit: Yes Status: Acute Assessment and plan: Patient is a 77-year-old male who presents with a right lower extremity DVT. Patient has been placed on heparin drip. Patient will tentatively be switched to Xarelto. Qualifiers: DVT location: lower extremity Affected thrombotic vein of extremity: other lower extremity vein Chronicity: acute Laterality: right Qualified Code(s): I82.491 - Acute embolism and thrombosis of other specified deep vein of right lower extremity (3) Hematuria Current Visit: Yes Status: Acute Assessment and plan: Patient is a 69-year-old male who presents with gross hematuria following TURBT and anticoagulation secondary to right lower extremity DVT. Patient's urine ap pears to be clear at this time, but we may expect worsening hematuria with continued anticoagulation. Urology will continue to follow. Qualifiers: Hematuria type: gross Qualified Code(s): R31.0 - Gross hematuria Progress Note Narrative: POD #2. Patient seen and examined lying in bed in no apparent distress. Condom catheter is in place and draining transparent, dark yellow urine into bedside ba g. Objective Initial Vital Signs Temp Pulse Resp BP Pulse Ox 98.8 F 89 16 97/63 93 10/30/18 20:08 10/30/18 20:08 10/30/18 20:08 10/30/18 20:08 10/30/18 20:08 - General physical appearance Present: no distress, no pain - Respiratory Present: normal expansion, normal respiratory effort - Abdomen Absent: distended - Genitourinary Urine Appearance: Present: Clear - Integumentary Present: no rash, no abnormal pigmentation - Musculoskeletal Present: normal posture - Psychiatric Present: oriented to person. Absent: oriented to time, oriented to place, speech is normal, memory intact - Labs 11/01/18 00:12 11/01/18 00:12 Diabetes panel 10/31/18 11/01/18 Range/Units 08:27 00:12 Sodium 143 138 (136-145) mEq/L Potassium 3.9 (3.5-5.1) mEq/L Chloride 104 (98-107) mEq/L Carbon Dioxide 27 (23-29) mEq/L BUN 31 H (8-23) mg/dL Creatinine 1.53 H (0.70-1.30) mg/dL Glucose 111 H (70-105) mg/dL Calcium 8.5 L (8.6-10.3) mg/dL Calcium panel 11/01/18 Range/Units 00:12 Calcium 8.5 L (8.6-10.3) mg/dL Pituitary panel 10/31/18 11/01/18 Range/Units 08:27 00:12 Sodium 143 138 (136-145) mEq/L Potassium 3.9 (3.5-5.1) mEq/L Chloride 104 (98-107) mEq/L Carbon Dioxide 27 (23-29) mEq/L BUN 31 H (8-23) mg/dL Creatinine 1.53 H (0.70-1.30) mg/dL Glucose 111 H (70-105) mg/dL Calcium 8.5 L (8.6-10.3) mg/dL Adrenal panel 10/31/18 11/01/18 Range/Units 08:27 00:12 Sodium 143 138 (136-145) mEq/L Potassium 3.9 (3.5-5.1) mEq/L Chloride 104 (98-107) mEq/L Carbon Dioxide 27 (23-29) mEq/L BUN 31 H (8-23) mg/dL Creatinine 1.53 H (0.70-1.30) mg/dL Glucose 111 H (70-105) mg/dL Calcium 8.5 L (8.6-10.3) mg/dL Consult Discharge Plan - Plan Referrals: Ana Simpson MD [Primary Care Provider] -
--- NOTE | 2018-11-01 10:22 | Internal Med Progress Note ---
Hospitalist Progress Note - Encounter Date of Encounter: 11/01/18 Time of Encounter: 09:30 - Subjective Interval History: Mr. Marcos is a 77 year old male with past medical history of atrial fibrillation not on anti coag, COPD, CVA, DVT, advanced dementia, GERD, hyperlipidemia, hypertension, seizures who recently found to have bladder tumor and went for TURBT with Dr. Devries on 10/30/18, after the procedure pt went home started c/o Rt leg swelling and pain. He was brought back to ER. In the ER his venous doppler of Rt leg showed acute DVT in the iliac, cfv, sfv, popliteal, and peroneal veins. He was admitted in the hospital and placed him on heparin gtt. His hematuria is improving now. Pt is still confused and demented which could be he is at his baseline mentation johnson. He denied any Abd pain / Chest pain. His Rt leg swelling and pain seems to be better today. He did have fever spike y/d @ 100.5 - Exam Vitals: Temp Pulse Resp BP Pulse Ox 99.1 F 92 14 132/56 96 11/01/18 07:04 11/01/18 07:04 11/01/18 07:04 11/01/18 07:04 11/01/18 07:04 Exam: Gen: Alert, awake, Oriented to self only.. Pleasantly demented. Chest: Diminished breath sounds B/L, No wheezing, No crackles, No rales Heart: S1S2+ RRR No murmurs Abd: Soft, NT, BS +, No organomegaly Ext: mild edema, warm to touch and tenderness in Rt leg, pulses are palpable and diminished. Neuro : demented Skin: No rash. - Assessment and Plan (1) DVT (deep venous thrombosis) Current Visit: Yes Status: Acute Assessment and Plan: Acute DVT in Rt leg complicated pt due to possible bladder malignancy Need to f.u with Heme Onc and Urology as an out pt about path results and further care regarding bladder tumor cont heparin gtt for now since we need to close monitoring his hematuria eventually will switch him to Xarelto Stable Hb @ 11.1 Cont close monitoring H/H Denied any CP / SOB (2) UTI (urinary tract infection) Current Visit: Yes Status: Acute Assessment and Plan: UA looks abnormal concerning for UTI started him on IV antibiotic Rocephin (3) SIRS (systemic inflammatory response syndrome) Current Visit: Yes Status: Acute Assessment and Plan: He does meet SIRS criteria with fever and source of infection as UTI (4) Acute hypernatremia Current Visit: Yes Status: Acute Assessment and Plan: Due to dehydration improved d/c IVF (5) Hematuria Current Visit: Yes Status: Acute Assessment and Plan: Mostly due to recent procedure Improving Stable Hb cont close monitoring of Hb If Hb drops below8 will transfuse him since he does have significant cardiac history pt is able to void ok.. No need of [place] now appreciate urology recommendations (6) Acute encephalopathy Current Visit: Yes Status: Acute Assessment and Plan: Could be due to metabolic and toxic encephalopathy as well as due to underlying dementia His UA is abnomral - concerning for UTI started him on abx Rocephin cont close monitoring sitter as needed high risk for sun down syndrome on Haldol PO PRN (7) Bladder tumor Current Visit: Yes Status: Acute Assessment and Plan: s/p TURBT by Dr. Devries on 10/30/18 consulted Urology for further f/u (8) CAD (coronary artery disease) Current Visit: Yes Status: Chronic Assessment and Plan: Held ASA and Plavix due to Hematuria resumed other home meds (9) Dementia Current Visit: Yes Status: Acute (10) GERD (gastroesophageal reflux disease) Current Visit: Yes Status: Chronic Assessment and Plan: on PPI (11) CKD (chronic kidney disease) stage 3, GFR 30-59 ml/min Current Visit: Yes Status: Acute Assessment and Plan: Stable Cr at baseline cont close monitoring - Time Spent with Patient Total time spent is greater than 50% in coordination of care (as documented) at patient's floor/unit and/or counseling patient: Internal Medicine: Result - Labs CBC & Chem 7: 11/01/18 00:12 11/01/18 00:12 Labs: Short CBC 10/31/18 10/31/18 11/01/18 Range/Units 11:21 20:34 00:12 WBC 8.3 (4.3-11.1) K/mcL Hgb 11.2 L 12.0 L 11.1 L (12.9-16.9) g/dL Hct 34.4 L 36.8 L 34.1 L (37.5-50.1) % Plt Count 91 L (140-400) K/mcL Neutrophils # 6.3 (1.6-8.9) K/mcL BMP 11/01/18 00:12 Sodium 138 Potassium 3.9 Chloride 104 Carbon Dioxide 27 BUN 31 H Creatinine 1.53 H Glucose 111 H Calcium 8.5 L Urine 10/31/18 Range/Units Unknown Urine Color Red A (Yellow) Urine Clarity Turbid A (Clear) Urine pH 5.5 (5.0-8.0) pH Units Ur Specific [place] 1.026 H (1.010-1.025) Urine Protein 100 H (Neg-Trace) mg/dL Urine Glucose (UA) Normal (Normal) mg/dL - ABG Interpretation ABG results: PT/INR, D-dimer PT 14.6 Seconds (9.4-12.1) H 10/30/18 23:19 Consult Discharge Plan - Plan Referrals: Ana Simpson MD [Primary Care Provider] - (1) DVT (deep venous thrombosis) Qualifiers: DVT location: lower extremity Affected thrombotic vein of extremity: other lo wer extremity vein Chronicity: acute Laterality: right Qualified Code(s): I82.491 - Acute embolism and thrombosis of other specified deep vein of right lower extremity (5) Hematuria Qualifiers: Hematuria type: gross Qualified Code(s): R31.0 - Gross hematuria (8) CAD (coronary artery disease) Qualifiers: Coronary Disease-Associated Artery/Lesion type: unspecified vessel or lesion type [place] vs. transplanted heart: [place] heart Associated angina: without angina Qualified Code(s): I25.10 - Atherosclerotic heart disease of [place] coronary artery without angina pectoris (9) Dementia Qualifiers: Dementia type: unspecified type Dementia behavioral disturbance: without behavioral disturbance Qualified Code(s): F03.90 - Unspecified dementia without behavioral disturbance (10) GERD (gastroesophageal reflux disease) Qualifiers: Esophagitis presence: esophagitis presence not specified Qualified Code(s): K21.9 - Gastro-esophageal reflux disease without esophagitis
[2018-11-01] MEDS ORDERED: Haloperidol Lactate 5 MG/ML VIAL IVP PRN (10:51)
[2018-11-01] MEDS ORDERED: Haloperidol Lactate 5 MG/ML VIAL IVP ONE (10:52)
[2018-11-01] MEDS: *HR* HYDROcodone/Acet 5/325 mg TABLET PO PRN (11:02)
[2018-11-01] MEDS: cefTRIAXone 1,000 MG in Water for inj. (sterile) 20 ML 10 ML IVP SCH (11:02)
[2018-11-01] MEDS: Gabapentin 300 MG CAPSULE PO SCH (21:17)
[2018-11-02] MEDS: Heparin 25,000 UNIT/250 ML D5W 25,000 UNIT/250 ML IV.SOLN IVC SCH (02:32)
[2018-11-02 06:24] LABS: Immature Granulocytes % 0.4 % (0-4); Monocytes % 5.3 %; Red Cell Distribution Width 12.2 % (11.5-14.5)
[2018-11-02 06:25] LABS: Basophils % 0.4 %; Eosinophils # 0.2 K/mcL (0.0-0.6); Eosinophils % 2.5 %; Hematocrit 38.2 % (37.5-50.1); Hemoglobin 12.7 g/dL (12.9-16.9); Lymphocytes # 1.2 K/mcL (0.6-4.6); Lymphocytes % 17.1 %; Mean Corpuscular HGB Conc 33.2 g/dL (31.6-35.5); Mean Corpuscular Hemoglobin 31.9 pg (28.0-33.3); Monocytes # 0.4 K/mcL (0.0-1.3); Red Blood Count 3.98 M/mcL (4.19-5.50); Segmented Neutrophils % 74.3 %
[2018-11-02 06:31] LABS: Neutrophils # 5.4 K/mcL (1.6-8.9); Platelet Count 96 K/mcL (140-400)
[2018-11-02 06:41] LABS: Calcium 8.9 mg/dL (8.6-10.3); Potassium 4.1 mEq/L (3.5-5.1)
[2018-11-02] MEDS: Cyanocobalamin (B-12) 1,000 MCG TABLET PO SCH (07:52)
[2018-11-02] MEDS: *HR* HYDROcodone/Acet 5/325 mg TABLET PO PRN (07:53)
[2018-11-02] MEDS: cefTRIAXone 1,000 MG in Water for inj. (sterile) 20 ML 10 ML IVP SCH (07:53)
[2018-11-02] MEDS ORDERED: *HR* Rivaroxaban 15 MG TABLET PO SCH (09:30)
--- NOTE | 2018-11-02 10:37 | Discharge Summary ---
- NOTES TO OUTPATIENT PROVIDER Notes to Outpatient Provider: f/u with PCP in one week. f/u with Urology in one week. please start taking Xarelto 15mg PO BID x 21 days then continue 1 tab PO D[place]y for your Rt leg DVT. Date of Encounter: 11/02/18 Time of Encounter: 10:28 - Discharge Diagnosis (1) DVT (deep venous thrombosis) Priority: Primary Status: Acute Qualifiers: DVT location: lower extremity Affected thrombotic vein of extremity: other lower extremity vein Chronicity: acute Laterality: right Qualified Code(s): I82.491 - Acute embolism and thrombosis of other specified deep vein of right lower extremity (2) UTI (urinary tract infection) Priority: Primary Status: Acute Qualifiers: Urinary tract infection type: acute cystitis Hematuria presence: with hematuria Qualified Code(s): N30.01 - Acute cystitis with hematuria (3) SIRS (systemic inflammatory response syndrome) Priority: Primary Status: Acute (4) Acute hypernatremia Priority: Secondary Status: Acute (5) Hematuria Priority: Secondary Status: Acute Qualifiers: Hematuria type: gross Qualified Code(s): R31.0 - Gross hematuria (6) Acute encephalopathy Priority: Secondary Status: Acute (7) Bladder tumor Priority: Secondary Status: Acute (8) CAD (coronary artery disease) Priority: Secondary Status: Chronic Qualifiers: Coronary Disease-Associated Artery/Lesion type: unspecified vessel or lesion type [place] vs. transplanted heart: [place] heart Associated angina: without angina Qualified Code(s): I25.10 - Atherosclerotic heart disease of [place] coronary artery without angina pectoris (9) Dementia Priority: Secondary Status: Acute Qualifiers: Dementia type: unspecified type Dementia behavioral disturbance: without behavioral disturbance Qualified Code(s): F03.90 - Unspecified dementia without behavioral disturbance (10) GERD (gastroesophageal reflux disease) Priority: Secondary Status: Chronic Qualifiers: Esophagitis presence: esophagitis presence not specified Qualified Code(s): K21.9 - Gastro-esophageal reflux disease without esophagitis (11) CKD (chronic kidney disease) stage 3, GFR 30-59 ml/min Priority: Secondary Status: Acute Hospital course: Mr. Marcos is a 77 year old male with past medical history of atrial fibrillation not on anti coag, COPD, CVA, DVT, advanced dementia, GERD, hyperlipidemia, hypertension, seizures who recently found to have bladder tumor and went for TURBT with Dr. Devries on 10/30/18, after the procedure pt went home started c/o Rt leg swelling and pain. He was brought back to ER. In the ER his venous doppler of Rt leg showed acute DVT in the iliac, cfv, sfv, popliteal, and peroneal veins. He was admitted in the hospital and placed him on heparin gtt. His hematuria is improved now. His Hb stayed stable @ 12.7. Pt was evaluated by urologist recommend to switch him to PO anti coag once his hematuria improves. He does have UTI, however his urine cx did not grow any bacteria could be due to recent abx administration prior to his procedure. Since he has abnormal UA, symptomatic and had fever 100.5, treated him with IV rocephin here and will d/c him on PO Keflex. Regarding anticoagulation johnson placed him on Xarelto now with 15mg PO BID x 21 days then continue 15mg PO Daily - Renally dosed. Pt was evaluated by PT / OT who recommend ECF placement for short term rehab. - Time Spent with Patient Total time spent providing and/or coordinating discharge services: - Discharge Medications Prescriptions: New Cephalexin [Keflex] 500 mg PO BID #10 capsule Rivaroxaban [Xarelto] 15 mg PO BID tablet Continued Atorvastatin [Lipitor] 40 mg PO HS Sertraline [Zoloft] 50 mg PO DAILY Pramipexole Di-HCl [Pramipexole Dihydrochloride] 0.125 mg PO HS Gabapentin [Neurontin] 900 mg PO HS Pantoprazole Sodium [Protonix] 40 mg PO DAILY Memantine HCl/Donepezil HCl [Namzaric 28 mg-10 mg Capsule] 1 cap PO DAILY Cyanocobalamin (Vitamin B-12) [Vitamin B-12] 1,000 mcg PO DAILY Home Medications: Atorvastatin [Lipitor] 40 mg PO HS 03/26/17 [History] Gabapentin [Neurontin] 900 mg PO HS 03/26/17 [History] Pantoprazole Sodium [Protonix] 40 mg PO DAILY 03/26/17 [History] Pramipexole Di-HCl [Pramipexole Dihydrochloride] 0.125 mg PO HS 03/26/17 [History] Sertraline [Zoloft] 50 mg PO DAILY 03/26/17 [History] Memantine HCl/Donepezil HCl [Namzaric 28 mg-10 mg Capsule] 1 cap PO DAILY 06/21/17 [History] Cyanocobalamin (Vitamin B-12) [Vitamin B-12] 1,000 mcg PO DAILY 10/30/18 [H istory] Cephalexin [Keflex] 500 mg PO BID #10 capsule 11/02/18 [Rx] Rivaroxaban [Xarelto] 15 mg PO BID tablet 11/02/18 [Rx] Allergies/Adverse Reactions: Allergy/AdvReac Type Severity Reaction Status Date / Time hydrochlorothiazide AdvReac decreased Verified 10/30/18 11:15 Na Date of admission: 10/31/18 12:27 Primary care physician: Ana Simpson MD Consults: 10/31/18 08:45 Consult to Urology [CONS] Routine Consulting Provider: Urology [place] Reason for Consult: Acute Rt leg DVT - on Heparin gtt. Had Bladder cancer resection done y/d by Dr. Devries Time Notified: 08:47 Call Completed: Yes 11/01/18 09:37 Consult to Occupational Therapy [CONS] Routine Comment: Evaluate, develop and implement POC Reason for Consult: WEAKNESS, POSSIBLE PLACEMENT Does patient have active BEDREST order?: No Is patient medically & hemodynamically stable?: Yes Consult to Physical Therapy [CONS] Routine Comment: Evaluate, develop and implement POC Reason for Consult: WEAKNESS, POSSIBLE PLACEMENT Does patient have active BEDREST order?: No Is patient medically & hemodynamically stable?: Yes 11/02/18 07:47 Consult to Taxi Cab Driver [CONS] Routine Reason for SW Consult: PLACEMENT TO SNF - Constitutional Vitals: Temp Pulse Resp BP Pulse Ox 98.6 F 75 18 126/70 94 11/02/18 07:02 11/02/18 07:02 11/02/18 07:02 11/02/18 07:02 11/02/18 07:02 General appearance: Present: cooperative, A&O X 1, answers questions appropriately Exam: Gen: Alert, awake, Oriented to self only.. Pleasantly demented. Chest: Diminished breath sounds B/L, No wheezing, No crackles, No rales Heart: S1S2+ RRR No murmurs Abd: Soft, NT, BS +, No organomegaly Ext: mild edema, warm to touch and tenderness in Rt leg, pulses are palpable and diminished. Neuro : demented Skin: No rash. - Patient Status Disposition: Transfer SNF Condition: Good Overall status at discharge: patient is back to baseline - Discharge Instructions Follow Up With: Ana Simpson MD [Primary Care Provider] - Chalo Devries MD [Partnered Physician] - Zenon Marks MD [Partnered Physician] - - Diet and Activity Activity: increase activity as tolerated Diet: low salt diet
--- NOTE | 2018-11-02 10:39 | Physician Discharge Referral ---
ExtendedCare Referral Info Transfer To: ECF Provider in Charge after Transfer: PCP Institutional Level of Care: Skilled - Diagnosis (1) DVT (deep venous thrombosis) Status: Acute (2) UTI (urinary tract infection) Status: Acute (3) SIRS (systemic inflammatory response syndrome) Status: Acute (4) Acute hypernatremia Status: Acute (5) Hematuria Status: Acute (6) Acute encephalopathy Status: Acute (7) Bladder tumor Status: Acute (8) CAD (coronary artery disease) Status: Chronic (9) Dementia Status: Acute (10) GERD (gastroesophageal reflux disease) Status: Chronic (11) CKD (chronic kidney disease) stage 3, GFR 30-59 ml/min Status: Acute - Transfer Medications Prescriptions: Cephalexin [Keflex] 500 mg PO BID #10 capsule Home Medications: Atorvastatin [Lipitor] 40 mg PO HS 03/26/17 [History] Gabapentin [Neurontin] 900 mg PO HS 03/26/17 [History] Pantoprazole Sodium [Protonix] 40 mg PO DAILY 03/26/17 [History] Pramipexole Di-HCl [Pramipexole Dihydrochloride] 0.125 mg PO HS 03/26/17 [History] Sertraline [Zoloft] 50 mg PO DAILY 03/26/17 [History] Memantine HCl/Donepezil HCl [Namzaric 28 mg-10 mg Capsule] 1 cap PO DAILY 06/21/17 [History] Cyanocobalamin (Vitamin B-12) [Vitamin B-12] 1,000 mcg PO DAILY 10/30/18 [History] Cephalexin [Keflex] 500 mg PO BID #10 capsule 11/02/18 [Rx] Rivaroxaban [Xarelto] 15 mg PO BID tablet 11/02/18 [Rx] Allergies/Adverse Reactions: Allergy/AdvReac Type Severity Reaction Status Date / Time hydrochlorothiazide AdvReac decreased Verified 10/30/18 11:15 Na - Respiratory Orders Smoking Cessation: Smoking cessation has been advised. For more information, call the [place] Tobacco Quit Line at 9-338-NWNA-NOW. CERTIFICATION: I certify that the transfer of the above named patient to an Extended Care Facility is necessary for the continuing treatment of the diagnosis listed. The above information is true and accurate reflection of patient's current condition. Confidential - Redisclosure prohibited without a patient's written consent.
[2018-11-02 11:49] VITALS: BP 123/64
[2018-11-02] MEDS ORDERED: *HR* Warfarin 5 MG TABLET PO ONE (15:45)
== END 2018-11-02 16:30 | DRG 299 ==
LOC: EMEROOARM 19:56 → 3BNU 19:56 → SUATTDRO 23:47 → 3BNU 10-31 01:00
PROVIDERS: ADMIT Internal Medicine; ATTEND Family Medicine

== ENCOUNTER 2018-12-26 12:26 | Observation (INO) ==
[2018-12-26] MEDS ORDERED: 0.9 % Sodium Chloride 1,000 ML IVC ONE ×2 (12:44→15:43)
[2018-12-26] MEDS ORDERED: 0.9 % Sodium Chloride 1,000 ML ONE (12:48)
--- NOTE | 2018-12-26 12:56 | Emergency Department Note ---
Disposition Clinical Impression: Dehydration, UTI (urinary tract infection) Disposition: Admitted As Inpatient Condition: Fair Forms: ED Satisfaction Letter Time of Disposition: 16:25 General Adult HPI - General Chief complaint: ED Altered Mental Status Stated complaint: AMS Time Seen by Provider: 12/26/18 12:40 Source: family Limitations: altered mental status - History of Present Illness HPI Narrative: Patient is a 78-year-old male that presents to emergency room with apparent increasing confusion, overall weakness, emotional liability according the family. The family states that he has not able to get up and move, family has had have significant help with getting into the car this morning. The patient apparently has not been eating and drinking very well at secondary to his progressive dementia. The patient has not had any other fevers vomiting or other complaints of pain. The patient however has been also somewhat more aggressive with the family at home. The patient cannot contribute to history of present illness review systems secondary to his significant dementia. Pain Scale: 0 - Related Data Home Medications Medication Instructions Recorded Confirmed Atorvastatin [Lipitor] 40 mg PO HS 03/26/17 12/26/18 Gabapentin [Neurontin] 900 mg PO HS 03/26/17 12/26/18 Pantoprazole Sodium [Protonix] 40 mg PO DAILY 03/26/17 12/26/18 Pramipexole Di-HCl [Pramipexole 0.125 mg PO HS 03/26/17 12/26/18 Dihydrochloride] Sertraline [Zoloft] 50 mg PO DAILY 03/26/17 12/26/18 Memantine HCl/Donepezil HCl 1 cap PO DAILY 06/21/17 12/26/18 [Namzaric 28 mg-10 mg Capsule] Cyanocobalamin (Vitamin B-12) 1,000 mcg PO DAILY 10/30/18 12/26/18 [Vitamin B-12] Apixaban [Eliquis] 5 mg PO 1-2XD 12/26/18 12/26/18 Sennosides/Docusate Sodium 1 - 2 each PO PRN 12/26/18 [Senna-Time S Tablet] Allergies Allergy/AdvReac Type Severity Reaction Status Date / Time hydrochlorothiazide AdvReac decreased Verified 10/30/18 11:15 Na Limitations: ROS unobtainable due to patients medical condition Past Medical History - Past Medical History Medical history: Reports: atrial fibrillation, COPD, CVA, DVT, dementia, GERD, hyperlipidemia, hypertension, seizures Surgical history: Reports: cataract, other Psychiatric history: Reports: no psych history - Social History Smoking Status: Former smoker Smokeless Tobacco Status: No Alcohol use: Reports: none Drug use: Reports: none Physical Exam PHYSICAL EXAM Constitutional: Well developed, overall cachectic appearing, Non-toxic appearance. HENT: Normocephalic, Atraumatic, Bilateral external ears normal, Oropharynx moist, No oral exudates, Nose normal. Neck- Normal range of motion, No tenderness, Supple. Eyes: PERRL, EOMI, Conjunctiva normal,. Cardiovascular: Regular rate and rhythm without clicks, rubs, gallops or murmurs. Respiratory: Normal breath sounds, No respiratory distress, No wheezing, rhonchi, or crackles. GI: Soft, nontender, no evidence of guarding or peritoneal signs. Bowel sounds are active. Musculoskeletal: Patient does have full range of motion of the upper and lower extremities, equal strength in the upper and lower extremities. The patient does have pectus excavatum noted on examination. Integument: Warm, Dry, No erythema, No rash. No edema. Neurologic: Alert, Normal sensory function, No focal deficits noted. CN II-XII grossly intact. - General Limitations: altered mental status General appearance: alert, in no apparent distress Course Vital Signs Temperature 98.0 F 12/26/18 12:31 Pulse Rate 81 12/26/18 12:31 Respiratory Rate 16 12/26/18 12:31 Blood Pressure 78/49 12/26/18 12:31 O2 Sat by Pulse Oximetry 97 12/26/18 12:31 Temperature 98.0 F 12/26/18 12:39 Pulse Rate 69 12/26/18 16:03 Respiratory Rate 16 12/26/18 16:03 Blood Pressure 130/69 12/26/18 16:03 O2 Sat by Pulse Oximetry 97 12/26/18 16:03 Oxygen Delivery Oxygen Delivery Room Air Medical Decision Making - [facility] Narrative Medical decision making narrative: EKG was obtained that showed evidence of sinus arrhythmia at 86 beats a minute, the patient does have PVCs noted, right bundle branch block is also noted. [place] interval slightly prolonged at 219 ms, QT interval within normal limits. Interpreted by myself. He was noted to be hypotensive upon arrival. The patient was started on IV fluids. Patient did not significantly respond to IV fluids in the emergency room. The patient does appear to have a UTI, no other signs of other significant infections noted. Patient does appear to be somewhat dehydrated. The patient at this point in time is going to be admitted. The patient is a DNR comfort care. The patient at this time will be admitted to the hospitalist. Case was discussed in full detail with the hospitalist and the patient will be admitted in stable condition. CRITICAL CARE TIME OF 35 MINUTES PERFORMING THIS INDIVIDUAL OUTSIDE OF SEPARATELY BILLABLE PROCEDURES. THIS INCLUDES BEDSIDE EVALUATION, INTERPRETATION OF EKG AND LAB TESTS AND CONSULTATIONS. Final impression 1. Severe sepsis without septic shock 2. UTI - Lab Data Result diagrams: 12/26/18 12:41 12/26/18 12:41 Lab Results 12/26/18 12/26/18 12/26/18 Range/Units 12:41 12:41 12:41 WBC 5.2 (4.3-11.1) K/mcL RBC 3.40 L (4.19-5.50) M/mcL Hgb 11.0 L (12.9-16.9) g/dL Hct 34.8 L (37.5-50.1) % MCV 102.4 H (83.0-100.0) fL MCH 32.4 (28.0-33.3) pg MCHC 31.6 (31.6-35.5) g/dL RDW 14.6 H (11.5-14.5) % Plt Count 148 (140-400) K/mcL MPV 10.0 (9.4-12.4) fL Immature Gran % 0.6 (0-4) % Seg Neutrophils % 73.8 % Lymphocytes % 12.6 % Monocytes % 10.5 % Eosinophils % 1.7 % Basophils % 0.8 % Neutrophils # 3.9 (1.6-8.9) K/mcL Lymphocytes # 0.7 (0.6-4.6) K/mcL Monocytes # 0.6 (0.0-1.3) K/mcL Eosinophils # 0.1 (0.0-0.6) K/mcL Basophils # 0.0 (0.0-0.2) K/mcL PT 21.6 H (9.4-12.1) Seconds INR 1.9 APTT 34.0 (26.0-36.0) Seconds Sodium 144 (136-145) mEq/L Potassium 4.2 (3.5-5.1) mEq/L Chloride 105 (98-107) mEq/L Carbon Dioxide 23 (23-29) mEq/L BUN 30 H (8-23) mg/dL Creatinine 2.05 H (0.70-1.30) mg/dL Est GFR ( Amer) 38 L (> 60) Est GFR (Non-Af Amer) 31 L (> 60) BUN/Creatinine Ratio 15 (6-26) Glucose 105 (70-105) mg/dL Calculated Osmolality 305 H (280-300) Lactic Acid (0.5-2.2) mmol/L Calcium 9.5 (8.6-10.3) mg/dL Total Bilirubin 0.6 (0.3-1.0) mg/dL Direct Bilirubin 0.2 (0.0-0.2) mg/dL Indirect Bilirubin 0.4 (0.0-1.2) mg/dL AST 25 (13-39) Units/L ALT 8 (7-52) Units/L Alkaline Phosphatase 111 H (34-104) Units/L Ammonia (16-53) mcmol/L Troponin I < 0.03 (< 0.04) ng/mL Serum Total Protein 6.9 (6.4-8.9) g/dL Albumin 3.7 (3.5-5.7) g/dL Globulin 3.2 (2.4-3.5) g/dL Albumin/Globulin Ratio 1.2 (1.1-2.2) Urine Color (Yellow) Urine Clarity (Clear) Urine pH (5.0-8.0) pH Units Ur Specific [place] (1.010-1.025) Urine Protein (Neg-Trace) mg/dL Urine Glucose (UA) (Normal) mg/dL Urine Ketones (Negative) mg/dL Urine Blood (Negative) Urine Nitrite (Negative) Urine Bilirubin (Negative) Urine Urobilinogen (Normal) mg/dL Ur Leukocyte Esterase (Negative) Urine Microscopic RBC (0-3) per hpf Urine Microscopic WBC (0-3) per hpf Ur Squamous Epith Cells (None-Few) per lpf Urine Bacteria (None-Few) per hpf Hyaline Casts (None-Few) per lpf Ur Culture Indicated? (NO) 12/26/18 12/26/18 12/26/18 Range/Units 12:59 12:59 14:43 WBC (4.3-11.1) K/mcL RBC (4.19-5.50) M/mcL Hgb (12.9-16.9) g/dL Hct (37.5-50.1) % MCV (83.0-100.0) fL MCH (28.0-33.3) pg MCHC (31.6-35.5) g/dL RDW (11.5-14.5) % Plt Count (140-400) K/mcL MPV (9.4-12.4) fL Immature Gran % (0-4) % Seg Neutrophils % % Lymphocytes % % Monocytes % % Eosinophils % % Basophils % % Neutrophils # (1.6-8.9) K/mcL Lymphocytes # (0.6-4.6) K/mcL Monocytes # (0.0-1.3) K/mcL Eosinophils # (0.0-0.6) K/mcL Basophils # (0.0-0.2) K/mcL PT (9.4-12.1) Seconds INR APTT (26.0-36.0) Seconds Sodium (136-145) mEq/L Potassium (3.5-5.1) mEq/L Chloride (98-107) mEq/L Carbon Dioxide (23-29) mEq/L BUN (8-23) mg/dL Creatinine (0.70-1.30) mg/dL Est GFR ( Amer) (> 60) Est GFR (Non-Af Amer) (> 60) BUN/Creatinine Ratio (6-26) Glucose (70-105) mg/dL Calculated Osmolality (280-300) Lactic Acid 3.8 H (0.5-2.2) mmol/L Calcium (8.6-10.3) mg/dL Total Bilirubin (0.3-1.0) mg/dL Direct Bilirubin (0.0-0.2) mg/dL Indirect Bilirubin (0.0-1.2) mg/dL AST (13-39) Units/L ALT (7-52) Units/L Alkaline Phosphatase (34-104) Units/L Ammonia 33 (16-53) mcmol/L Troponin I (< 0.04) ng/mL Serum Total Protein (6.4-8.9) g/dL Albumin (3.5-5.7) g/dL Globulin (2.4-3.5) g/dL Albumin/Globulin Ratio (1.1-2.2) Urine Color Yellow (Yellow) Urine Clarity Cloudy A (Clear) Urine pH 5.5 (5.0-8.0) pH Units Ur Specific [place] 1.022 (1.010-1.025) Urine Protein Trace (Neg-Trace) mg/dL Urine Glucose (UA) Normal (Normal) mg/dL Urine Ketones Negative (Negative) mg/dL Urine Blood Large H (Negative) Urine Nitrite Negative (Negative) Urine Bilirubin Small H (Negative) Urine Urobilinogen Normal (Normal) mg/dL Ur Leukocyte Esterase Small H (Negative) Urine Microscopic RBC 30-50 H (0-3) per hpf Urine Microscopic WBC 15-30 H (0-3) per hpf Ur Squamous Epith Cells Few (None-Few) per lpf Urine Bacteria Moderate H (None-Few) per hpf Hyaline Casts None Seen (None-Few) per lpf Ur Culture Indicated? YES A (NO) Critical Care Time Total Critical Care Time: 35 Attestation: See chart
[2018-12-26 13:01] LABS: Basophils % 0.8 %; Eosinophils # 0.1 K/mcL (0.0-0.6); Eosinophils % 1.7 %; Hematocrit 34.8 % (37.5-50.1); Immature Granulocytes % 0.6 % (0-4); Lymphocytes # 0.7 K/mcL (0.6-4.6); Lymphocytes % 12.6 %; Mean Corpuscular HGB Conc 31.6 g/dL (31.6-35.5); Mean Corpuscular Hemoglobin 32.4 pg (28.0-33.3); Mean Corpuscular Volume 102.4 fL (83.0-100.0); Monocytes # 0.6 K/mcL (0.0-1.3); Monocytes % 10.5 %; Neutrophils # 3.9 K/mcL (1.6-8.9); Platelet Count 148 K/mcL (140-400); Red Cell Distribution Width 14.6 % (11.5-14.5); Segmented Neutrophils % 73.8 %; White Blood Count 5.2 K/mcL (4.3-11.1)
[2018-12-26 13:11] LABS: INR 1.9; Prothrombin Time 21.6 Seconds (9.4-12.1)
[2018-12-26 13:36] LABS: Alanine Aminotransferase 8 Units/L (7-52); Albumin 3.7 g/dL (3.5-5.7); Albumin/Globulin Ratio 1.2 (1.1-2.2); Alkaline Phosphatase 111 Units/L (34-104); Aspartate Amino Transferase 25 Units/L (13-39); BUN/Creatinine Ratio 15 (6-26); Bilirubin,Direct 0.2 mg/dL (0.0-0.2); Bilirubin,Indirect 0.4 mg/dL (0.0-1.2); Bilirubin,Total 0.6 mg/dL (0.3-1.0); Blood Urea Nitrogen 30 mg/dL (8-23); Calcium 9.5 mg/dL (8.6-10.3); Carbon Dioxide 23 mEq/L (23-29); Chloride 105 mEq/L (98-107); Globulin 3.2 g/dL (2.4-3.5); Glucose 105 mg/dL (70-105); Osmolality,Calculated 305 (280-300); Potassium 4.2 mEq/L (3.5-5.1); Sodium 144 mEq/L (136-145); Total Protein 6.9 g/dL (6.4-8.9); Troponin I < 0.03 ng/mL (< 0.04); eGFR For African Americans 38 (> 60); eGFR For Non-African Americans 31 (> 60)
[2018-12-26 14:53] LABS: Bilirubin,Urine Small (Negative); Blood,Urine Large (Negative); Clarity,Urine Cloudy (Clear); Color,Urine Yellow (Yellow); Glucose,Urine (UA) Normal (Normal); Ketones,Urine Negative (Negative); Leukocyte Esterase,Urine Small (Negative); Nitrite,Urine Negative (Negative); PH,Urine 5.5 pH Units (5.0-8.0); Protein,Urine Trace mg/dL (Neg-Trace); Specific Gravity,Urine 1.022 (1.010-1.025); Urobilinogen,Urine Normal (Normal)
[2018-12-26 14:57] LABS: Bacteria,Urine Moderate per hpf (None-Few); Hyaline Casts,Urine None Seen per lpf (None-Few); RBC,Urine 30-50 per hpf (0-3); Squamous Epithelial Cell,Urine Few per lpf (None-Few); WBC,Urine 15-30 per hpf (0-3)
[2018-12-26] MEDS ORDERED: cefTRIAXone 1,000 MG in 0.9 % Sodium Chloride Mini Bag 100 ML IVPB ONE (15:43)
--- NOTE | 2018-12-26 17:29 | Internal Med History&Physical ---
Date of Encounter: 12/26/18 Time of Encounter: 17:28 Internal Medicine - H&P: HPI History of present illness: Mr. Marcos is a 78 year old male with history of dementia, HTN, CVA, afib, recent DVT now on AC, presented to ED by family because of weakness, confusion, agitation. Patient was recently in hospital in October, two months ago, for a right lower extremity DVT with recent TURBT for a bladder tumor. She was discharged on Xarelto at that time. He was discharged to SNF on discharge, and has been living at home for past few weeks. Family at bedside states he was at his normal baseline but in past few days has been more agitated and weak. Family does not report that he had any fevers but did note that he had some urine changes. In the ED patient had urinalysis consistent with UTI. Patient was dehydrated with BP low at 78/49, HR 81, LA elevated at 3.8, which BP and lactic acid improved to normal limits after IV fluids. Past Med Surg Social Fam HX - Past Medical History Medical history: atrial fibrillation, COPD, CVA, DVT, dementia, GERD, hyperlipidemia, hypertension, seizures Additional medical history: bladder tumor. history of CVA s/p TPA with bleeding complication 2005 x2. pectus excavatum. colon polyp- hyperplastic. stroke x2. LLE DVT. allergic rhinitis. PVC's. depression. subclavian steel syn left arm. CVA brainstem. spontanious pneumothorax. stomach ulcer. aortic stenosis. bilateral toe ulcerations of unclear eitiology. diverticulosis. colon tubular adenoma. bladder tumor Psychiatric history: no psych history - Past Surgical History Surgical History: cataract, other Additional surgical history: blood clot on brain from CVA - Social History Smoking Status: Former smoker Smokeless Tobacco Status: No Alcohol use: none Drug use: none Internal Medicine - H&P: Meds Atorvastatin [Lipitor] 40 mg PO HS 03/26/17 [History] Gabapentin [Neurontin] 900 mg PO HS 03/26/17 [History] Pantoprazole Sodium [Protonix] 40 mg PO DAILY 03/26/17 [History] Pramipexole Di-HCl [Pramipexole Dihydrochloride] 0.125 mg PO HS 03/26/17 [History] Sertraline [Zoloft] 50 mg PO DAILY 03/26/17 [History] Memantine HCl/Donepezil HCl [Namzaric 28 mg-10 mg Capsule] 1 cap PO DAILY 06/21/17 [History] Cyanocobalamin (Vitamin B-12) [Vitamin B-12] 1,000 mcg PO DAILY 10/30/18 [History] Apixaban [Eliquis] 5 mg PO 1-2XD 12/26/18 [History] Sennosides/Docusate Sodium [Senna-Time S Tablet] 1 - 2 each PO PRN 12/26/18 [History] Allergy/AdvReac Type Severity Reaction Status Date / Time hydrochlorothiazide AdvReac decreased Verified 10/30/18 11:15 Na ROS unobtainable: due to mental status All Systems PM: A 10-system review of systems was performed and is negative for pertinent findings except as documented above in the HPI. - Constitutional Vitals: Temp Pulse Resp BP Pulse Ox 98.0 F 69 16 130/69 97 12/26/18 12:39 12/26/18 16:03 12/26/18 16:03 12/26/18 16:03 12/26/18 16:03 General appearance: Present: A&O X 0 Exam: . - Head Head exam: Present: atraumatic, normocephalic - Eye Eye exam: Present: PERRL, conjuntiva pink, sclera anicteric Pupils: Present: PERRL - ENT ENT exam: Present: mucous membranes dry - Neck Neck exam general surgery: Present: supple, trachea midline. Absent: lymphadenopathy - Respiratory Respiratory exam: Present: CTAB. Absent: accessory muscle use, rales, rhonchi, wheezes - Cardiovascular Cardiovascular exam: Present: RRR, +S1, +S2. Absent: diastolic murmur, gallop, rubs, systolic murmur - GI/Abdominal GI/Abdominal exam: Present: normal bowel sounds, soft, no peritoneal signs. Absent: distended, tenderness - Extremities Exam Extremities exam: Present: warm, radial pulses palpable and symmetrical. Absent: calf tenderness, cyanotic, pedal edema - Neurological Exam Neurological exam: Present: CN II-XII intact, oriented X3, no focal deficits. Absent: pronater drift, facial droop, speech deficit - Skin Skin exam: Present: dry, intact Internal Med - H&P Results - Labs CBC & Chem 7: 12/26/18 12:41 12/26/18 12:41 Labs: Short CBC 12/26/18 Range/Units 12:41 WBC 5.2 (4.3-11.1) K/mcL Hgb 11.0 L (12.9-16.9) g/dL Hct 34.8 L (37.5-50.1) % Plt Count 148 (140-400) K/mcL Neutrophils # 3.9 (1.6-8.9) K/mcL BMP 12/26/18 12:41 Sodium 144 Potassium 4.2 Chloride 105 Carbon Dioxide 23 BUN 30 H Creatinine 2.05 H Glucose 105 Calcium 9.5 Cardiac Enzymes 12/26/18 Range/Units 12:41 Troponin I < 0.03 (< 0.04) ng/mL Liver Function 12/26/18 Range/Units 12:41 Total Bilirubin 0.6 (0.3-1.0) mg/dL Direct Bilirubin 0.2 (0.0-0.2) mg/dL AST 25 (13-39) Units/L ALT 8 (7-52) Units/L Alkaline Phosphatase 111 H (34-104) Units/L Albumin 3.7 (3.5-5.7) g/dL Urine 12/26/18 Range/Units 14:43 Urine Color Yellow (Yellow) Urine Clarity Cloudy A (Clear) Urine pH 5.5 (5.0-8.0) pH Units Ur Specific [place] 1.022 (1.010-1.025) Urine Protein Trace (Neg-Trace) mg/dL Urine Glucose (UA) Normal (Normal) mg/dL - Impressions ITS Impressions Chest X-Ray 12/26/18 12:44 IMPRESSION: Patchy right lower lung opacities, improved compared to prior study may represent residual pneumonia or atelectasis. Continued radiographic follow-up recommended to ensure resolution. D/ / Martha Rivera MD / Martha Rivera MD Interpreting Provider: Martha Rivera MD Head CT 12/26/18 12:46 IMPRESSION: No acute intracranial abnormality. Multifocal encephalomalacia appears unchanged. Chronic microvascular ischemic changes. D/ / Adan Downey / Adan Downey Interpreting Provider: Adan Downey - Assessment and Plan (1) UTI (urinary tract infection) Current Visit: Yes Status: Acute Assessment and plan: Patient meets no SIRS criteria on admission. He does however have lactic acidosis and hypotension, but this could simply be due to dehydration. - Follow-up urine cultures, blood cultures. - Continue Rocephin - Continue close monitoring of vital signs. Qualifiers: Urinary tract infection type: acute cystitis Hematuria presence: without hematuria Qualified Code(s): N30.00 - Acute cystitis without hematuria (2) Acute encephalopathy Current Visit: No Status: Acute Assessment and plan: Secondary to UTI, plan as above. (3) DVT (deep venous thrombosis) Current Visit: No Status: Acute Assessment and plan: Continue AC Qualifiers: DVT location: lower extremity Affected thrombotic vein of extremity: other lower extremity vein Chronicity: acute Laterality: right Qualified Code(s): I82.491 - Acute embolism and thrombosis of other specified deep vein of right lower extremity (4) Dementia Current Visit: No Status: Acute Qualifiers: Dementia type: unspecified type Dementia behavioral disturbance: without behavioral disturbance Qualified Code(s): F03.90 - Unspecified dementia without behavioral disturbance (5) CAD (coronary artery disease) Current Visit: No Status: Chronic Assessment and plan: Resume home medications. Qualifiers: Coronary Disease-Associated Artery/Lesion type: unspecified vessel or lesion type [place] vs. transplanted heart: [place] heart Associated angina: without angina Qualified Code(s): I25.10 - Atherosclerotic heart disease of [place] coronary artery without angina pectoris (6) CKD (chronic kidney disease) stage 3, GFR 30-59 ml/min Current Visit: No Status: Acute Assessment and plan: Slight worsening of creatinine likely related to dehydration and UTI. Continue IV fluids and Rocephin recheck BMP in AM. (7) Dehydration Current Visit: Yes Status: Acute Assessment and plan: Continue IV fluids, lactic acidosis resolved. - Time Spent With Patient Total time spent is greater than 50% in coordination of care (as documented) at patient's floor/unit and/or counseling patient:
[2018-12-26] MEDS ORDERED: Naloxone 0.4 MG/ML INJ IVP PRN (18:09)
[2018-12-26] MEDS ORDERED: 0.9 % Sodium Chloride 1,000 ML IVC SCH (18:15)
[2018-12-26] MEDS: Apixaban 5 MG TABLET PO SCH (23:41)
[2018-12-27 05:54] LABS: Basophils % 0.8 %; Eosinophils # 0.2 K/mcL (0.0-0.6); Eosinophils % 4.4 %; Hematocrit 28.1 % (37.5-50.1); Immature Granulocytes % 0.5 % (0-4); Lymphocytes # 0.8 K/mcL (0.6-4.6); Lymphocytes % 20.5 %; Mean Corpuscular HGB Conc 32.4 g/dL (31.6-35.5); Mean Corpuscular Hemoglobin 32.3 pg (28.0-33.3); Mean Corpuscular Volume 99.6 fL (83.0-100.0); Mean Platelet Volume 10.5 fL (9.4-12.4); Monocytes # 0.6 K/mcL (0.0-1.3); Monocytes % 15.4 %; Neutrophils # 2.3 K/mcL (1.6-8.9); Platelet Count 123 K/mcL (140-400); Red Blood Count 2.82 M/mcL (4.19-5.50); Red Cell Distribution Width 14.7 % (11.5-14.5); Segmented Neutrophils % 58.4 %; White Blood Count 3.9 K/mcL (4.3-11.1)
[2018-12-27 06:17] LABS: Hemoglobin 9.1 g/dL (12.9-16.9)
[2018-12-27 06:34] LABS: Calcium 8.4 mg/dL (8.6-10.3); Potassium 3.7 mEq/L (3.5-5.1)
[2018-12-27] MEDS ORDERED: DONEPEZIL HCL PO SCH (09:00)
[2018-12-27] MEDS ORDERED: MEMANTINE HCL PO SCH (09:00)
[2018-12-27] MEDS: Cyanocobalamin (B-12) 1,000 MCG TABLET PO SCH (09:27)
[2018-12-27] MEDS: Apixaban 5 MG TABLET PO SCH ×2 (09:27→20:17)
[2018-12-27] MEDS: cefTRIAXone 1,000 MG in Water for inj. (sterile) 10 ML IVP SCH (09:27)
--- NOTE | 2018-12-27 12:52 | Internal Med Progress Note ---
Hospitalist Progress Note - Encounter Date of Encounter: 12/27/18 Time of Encounter: 12:30 - Subjective Interval History: Patient is seen at bedside. Patient has a history of dementia. Currently he is not agitated, denies any acute complaints. Denies any chest pain, shortness of breath, abdominal pain. Denied dysuria. But patient is not a very good source of subjective assessment considering history of dementia and is not oriented. No other overnight events. - Exam Vitals: Temp Pulse Resp BP Pulse Ox 97.7 F 65 16 112/57 95 12/27/18 11:52 12/27/18 11:52 12/27/18 11:52 12/27/18 11:52 12/27/18 11:52 Exam: General: Alert , not oriented, able to follow commands. HEENT: No thyromegaly, no lymphadenopathy, no discharge. Eyes: No discharge. Respiratory: Normal vesicular breathing, no added sounds, breathing equal in both sides. CVS: Normal heart sounds, no murmurs, no edema. Extremities: No peripheral edema, peripheral pulses intact. Lymph nodes: No lymphadenopathy Gastrointestinal: Soft, nontender abdomen, normal abdominal sounds. No diste ntion noted. Genitourinary: No paravertebral tenderness. Neurological: Alert, orinented to himself, No focal deficits. . - Assessment and Plan (1) UTI (urinary tract infection) Current Visit: Yes Status: Acute Assessment and Plan: -BP improved, alctic acidosis impoved. -UA positive fr the UTI -Urine cultures pending -Pt deneis any complaitns but pt is not a good hsitorian -COntinue ceftriaxone -Await on final culture results. (2) Acute encephalopathy Current Visit: No Status: Acute Assessment and Plan: -Likley metabolic in contxt of UTI. -COntinue to manage with the antibiotics (3) DVT (deep venous thrombosis) Current Visit: No Status: Acute Assessment and Plan: Continue AC (4) CAD (coronary artery disease) Current Visit: No Status: Chronic Assessment and Plan: -Cont atorvastatin (5) Dementia Current Visit: No Status: Acute Assessment and Plan: -Continue donepezil (6) CKD (chronic kidney disease) stage 3, GFR 30-59 ml/min Current Visit: No Status: Acute Assessment and Plan: -Baseline around 1.4-1.5. -Imrpoved to 1.6 from 2.05 -Likle prerenal -Will continue gentle hydration cosnidering pt oral intake is poor (7) Dehydration Current Visit: Yes Status: Acute Assessment and Plan: Continue IV fluids, lactic acidosis resolved. (8) History of DVT (deep vein thrombosis) Current Visit: No Status: Chronic Assessment and Plan: -Continue AC - Time Spent with Patient Total time spent is greater than 50% in coordination of care (as documented) at patient's floor/unit and/or counseling patient: Internal Medicine: Result - Labs CBC & Chem 7: 12/27/18 05:20 12/27/18 05:20 Labs: Short CBC 12/26/18 12/27/18 Range/Units 12:41 05:20 WBC 5.2 3.9 L (4.3-11.1) K/mcL Hgb 11.0 L 9.1 L D (12.9-16.9) g/dL Hct 34.8 L 28.1 L (37.5-50.1) % Plt Count 148 123 L (140-400) K/mcL Neutrophils # 3.9 2.3 (1.6-8.9) K/mcL BMP 12/26/18 12/27/18 12:41 05:20 Sodium 144 146 H Potassium 4.2 3.7 Chloride 105 111 H Carbon Dioxide 23 22 L BUN 30 H 24 H Creatinine 2.05 H 1.60 H Glucose 105 95 Calcium 9.5 8.4 L Cardiac Enzymes 12/26/18 Range/Units 12:41 Troponin I < 0.03 (< 0.04) ng/mL Liver Function 12/26/18 Range/Units 12:41 Total Bilirubin 0.6 (0.3-1.0) mg/dL Direct Bilirubin 0.2 (0.0-0.2) mg/dL AST 25 (13-39) Units/L ALT 8 (7-52) Units/L Alkaline Phosphatase 111 H (34-104) Units/L Albumin 3.7 (3.5-5.7) g/dL Urine 12/26/18 Range/Units 14:43 Urine Color Yellow (Yellow) Urine Clarity Cloudy A (Clear) Urine pH 5.5 (5.0-8.0) pH Units Ur Specific [place] 1.022 (1.010-1.025) Urine Protein Trace (Neg-Trace) mg/dL Urine Glucose (UA) Normal (Normal) mg/dL - ABG Interpretation ABG results: PT/INR, D-dimer PT 21.6 Seconds (9.4-12.1) H 12/26/18 12:41 - Impressions Impressions Chest X-Ray 12/26/18 12:44 IMPRESSION: Patchy right lower lung opacities, improved compared to prior study may represent residual pneumonia or atelectasis. Continued radiographic follow-up recommended to ensure resolution. D/ / Martha Rivera MD / Martha Rivera MD Interpreting Provider: Martha Rivera MD Head CT 12/26/18 12:46 IMPRESSION: No acute intracranial abnormality. Multifocal encephalomalacia appears unchanged. Chronic microvascular ischemic changes. D/ / Adan Downey / Adan Downey Interpreting Provider: Adan Downey Consult Discharge Plan - Plan Referrals: Ana Simpson MD [Primary Care Provider] - (1) UTI (urinary tract infection) Qualifiers: Urinary tract infection type: acute cystitis Hematuria presence: without hematuria Qualified Code(s): N30.00 - Acute cystitis without hematuria (3) DVT (deep venous thrombosis) Qualifiers: DVT location: lower extremity Affected thrombotic vein of extremity: other lower extremity vein Chronicity: acute Laterality: right Qualified Code(s): I82.491 - Acute embolism and thrombosis of other specified deep vein of right lower extremity (4) CAD (coronary artery disease) Qualifiers: Coronary Disease-Associated Artery/Lesion type: unspecified vessel or lesion type [place] vs. transplanted heart: [place] heart Associated angina: without angina Qualified Code(s): I25.10 - Atherosclerotic heart disease of [place] coronary artery without angina pectoris (5) Dementia Qualifiers: Dementia type: unspecified type Dementia behavioral disturbance: without behavioral disturbance Qualified Code(s): F03.90 - Unspecified dementia without behavioral disturbance
[2018-12-27] MEDS: Ringers Solution, Lactated 1,000 ML IVC SCH (13:53)
[2018-12-27] MEDS ORDERED: Sennosides/Docusate Sodium TABLET PO PRN (16:11)
[2018-12-28 05:28] LABS: Basophils % 0.6 %; Eosinophils # 0.2 K/mcL (0.0-0.6); Eosinophils % 4.1 %; Hematocrit 28.6 % (37.5-50.1); Hemoglobin 9.2 g/dL (12.9-16.9); Immature Granulocytes % 0.8 % (0-4); Lymphocytes # 0.6 K/mcL (0.6-4.6); Lymphocytes % 16.3 %; Mean Corpuscular HGB Conc 32.2 g/dL (31.6-35.5); Mean Corpuscular Hemoglobin 32.2 pg (28.0-33.3); Mean Platelet Volume 10.5 fL (9.4-12.4); Monocytes # 0.5 K/mcL (0.0-1.3); Monocytes % 12.4 %; Neutrophils # 2.4 K/mcL (1.6-8.9); Platelet Count 118 K/mcL (140-400); Red Blood Count 2.86 M/mcL (4.19-5.50); Red Cell Distribution Width 14.5 % (11.5-14.5); Segmented Neutrophils % 65.8 %; White Blood Count 3.6 K/mcL (4.3-11.1)
[2018-12-28 05:45] LABS: Calcium 8.4 mg/dL (8.6-10.3); Magnesium 1.9 mg/dL (1.6-2.6); Potassium 3.7 mEq/L (3.5-5.1)
[2018-12-28] MEDS: Apixaban 5 MG TABLET PO SCH (10:14)
[2018-12-28] MEDS: cefTRIAXone 1,000 MG in Water for inj. (sterile) 10 ML IVP SCH (10:14)
[2018-12-28] MEDS: Cyanocobalamin (B-12) 1,000 MCG TABLET PO SCH (10:14)
[2018-12-28] MEDS: Ringers Solution, Lactated 1,000 ML IVC SCH (10:21)
--- NOTE | 2018-12-28 12:14 | Internal Med Progress Note ---
Hospitalist Progress Note - Encounter Date of Encounter: 12/28/18 Time of Encounter: 10:14 - Exam Vitals: Temp Pulse Resp BP Pulse Ox 98.6 F 60 18 136/60 95 12/28/18 12:01 12/28/18 12:01 12/28/18 12:01 12/28/18 12:01 12/28/18 12:01 - Assessment and Plan (1) DVT (deep venous thrombosis) Current Visit: No Status: Acute (2) CAD (coronary artery disease) Current Visit: No Status: Chronic (3) Dementia Current Visit: No Status: Acute (4) Acute encephalopathy Current Visit: No Status: Acute (5) CKD (chronic kidney disease) stage 3, GFR 30-59 ml/min Current Visit: No Status: Acute (6) UTI (urinary tract infection) Current Visit: Yes Status: Acute (7) Dehydration Current Visit: Yes Status: Acute (8) History of DVT (deep vein thrombosis) Current Visit: No Status: Chronic - Time Spent with Patient Total time spent is greater than 50% in coordination of care (as documented) at patient's floor/unit and/or counseling patient: Internal Medicine: Result - Labs CBC & Chem 7: 12/28/18 04:49 12/28/18 04:49 Labs: Short CBC 12/28/18 Range/Units 04:49 WBC 3.6 L (4.3-11.1) K/mcL Hgb 9.2 L (12.9-16.9) g/dL Hct 28.6 L (37.5-50.1) % Plt Count 118 L (140-400) K/mcL Neutrophils # 2.4 (1.6-8.9) K/mcL BMP 12/28/18 04:49 Sodium 143 Potassium 3.7 Chloride 103 Carbon Dioxide 25 BUN 17 Creatinine 1.40 H Glucose 96 Calcium 8.4 L - ABG Interpretation ABG results: PT/INR, D-dimer PT 21.6 Seconds (9.4-12.1) H 12/26/18 12:41 Consult Discharge Plan - Plan Referrals: Ana Simpson MD [Primary Care Provider] - (1) DVT (deep venous thrombosis) Qualifiers: DVT location: lower extremity Affected thrombotic vein of extremity: other lower extremity vein Chronicity: acute Laterality: right Qualified Code(s): I82.491 - Acute embolism and thrombosis of other specified deep vein of right lower extremity (2) CAD (coronary artery disease) Qualifiers: Coronary Disease-Associated Artery/Lesion type: unspecified vessel or lesion type [place] vs. transplanted heart: [place] heart Associated angina: without angina Qualified Code(s): I25.10 - Atherosclerotic heart disease of [place] coronary artery without angina pectoris (3) Dementia Qualifiers: Dementia type: unspecified type Dementia behavioral disturbance: without behavioral disturbance Qualified Code(s): F03.90 - Unspecified dementia without behavioral disturbance (6) UTI (urinary tract infection) Qualifiers: Urinary tract infection type: acute cystitis Hematuria presence: without hematuria Qualified Code(s): N30.00 - Acute cystitis without hematuria
[2018-12-28 15:52] VITALS: BP 129/62
--- NOTE | 2018-12-28 17:36 | Discharge Summary ---
- NOTES TO OUTPATIENT PROVIDER Notes to Outpatient Provider: Patient would need follow-up of hemoglobin and wbc in 1-2 weeks as well as renal function in 1-2 weeks. Finish 5 more days of antibiotic. Orders not resulted at time of discharge: Pending orders 12/26/18 12:44 ECG 12 lead ECG [ECG] Stat 12/26/18 12:59 Culture,Blood [BC] Stat Date of Encounter: 12/28/18 Time of Encounter: 17:34 - Discharge Diagnosis (1) CAD (coronary artery disease) Priority: Secondary Status: Chronic Qualifiers: Coronary Disease-Associated Artery/Lesion type: unspecified vessel or lesion type [place] vs. transplanted heart: [place] heart Associated angina: without angina Qualified Code(s): I25.10 - Atherosclerotic heart disease of [place] coronary artery without angina pectoris (2) Dementia Priority: Secondary Status: Acute Qualifiers: Dementia type: unspecified type Dementia behavioral disturbance: without behavioral disturbance Qualified Code(s): F03.90 - Unspecified dementia without behavioral disturbance (3) Acute encephalopathy Priority: Primary Status: Acute (4) CKD (chronic kidney disease) stage 3, GFR 30-59 ml/min Priority: Secondary Status: Acute (5) UTI (urinary tract infection) Priority: Primary Status: Acute Qualifiers: Urinary tract infection type: acute cystitis Hematuria presence: without hematuria Qualified Code(s): N30.00 - Acute cystitis without hematuria (6) Dehydration Priority: Primary Status: Acute (7) History of DVT (deep vein thrombosis) Priority: Secondary Status: Chronic Hospital course: Mr. Marcos is a 78 year old male past medical history of dementia, hypertension, A. fib, recent DVT on anticoagulation came in with complain of weakness confusion and agitation. Patient came in with altered mental status was found to have signs of UTI which likely cause of his altered mental status on his baseline dementia. Head CT was unremarkable except chronic changes. Chest x- ray showed right lower lobe patchy opacity which were improved. Patient did not have any white count on admission. He had WILBUR on CKD and was started on IV fluids which improved to his baseline. UA was unremarkable and patient was started on empiric ceftriaxone. Urine grew Enterococcus faecalis which is pansensitive. Blood cultures remain negative. She did not have any fevers during this stay. His hemoglobin did trend down while on anticoagulation due to DVT however did not have any signs of active bleeding including bloody bowel movement melena or bloody emesis. He does have some urine in his blood. He does have macrocytosis possibly B12 deficiency as he is already getting B12 supplements. Patient is otherwise stable [facility] 5 day course of antibiotic. Patient will need to continue anticoagulation for now given recent DVT. However will need to monitor hemoglobin as outpatient in 1-2 weeks as well as renal function test. Lab prescription were provided. [facility]. Discharge discussed with: patient, family, nurse, social work, case management - Time Spent with Patient Total time spent providing and/or coordinating discharge services: Time spent: Greater than 30 minutes (35) - Discharge Medications Prescriptions: New Amoxicillin/Clavulanate [Augmentin] 875 mg PO BIDWM 5 Days #10 tablet Continued Atorvastatin [Lipitor] 40 mg PO HS Sertraline [Zoloft] 50 mg PO DAILY Pramipexole Di-HCl [Pramipexole Dihydrochloride] 0.125 mg PO HS Gabapentin [Neurontin] 900 mg PO HS Pantoprazole Sodium [Protonix] 40 mg PO DAILY Memantine HCl/Donepezil HCl [Namzaric 28 mg-10 mg Capsule] 1 cap PO DAILY Cyanocobalamin (Vitamin B-12) [Vitamin B-12] 1,000 mcg PO DAILY Sennosides/Docusate Sodium [Senna-Time S Tablet] 1 - 2 each PO DAILY Apixaban [Eliquis] 5 mg PO BID Home Medications: Atorvastatin [Lipitor] 40 mg PO HS 03/26/17 [History] Gabapentin [Neurontin] 900 mg PO HS 03/26/17 [History] Pantoprazole Sodium [Protonix] 40 mg PO DAILY 03/26/17 [History] Pramipexole Di-HCl [Pramipexole Dihydrochloride] 0.125 mg PO HS 03/26/17 [History] Sertraline [Zoloft] 50 mg PO DAILY 03/26/17 [History] Memantine HCl/Donepezil HCl [Namzaric 28 mg-10 mg Capsule] 1 cap PO DAILY 06/21/17 [History] Cyanocobalamin (Vitamin B-12) [Vitamin B-12] 1,000 mcg PO DAILY 10/30/18 [History] Apixaban [Eliquis] 5 mg PO BID 12/26/18 [History] Sennosides/Docusate Sodium [Senna-Time S Tablet] 1 - 2 each PO DAILY 12/26/18 [History] Amoxicillin/Clavulanate [Augmentin] 875 mg PO BIDWM 5 Days #10 tablet 12/28/18 [Rx] Allergies/Adverse Reactions: Allergy/AdvReac Type Severity Reaction Status Date / Time hydrochlorothiazide AdvReac decreased Verified 12/27/18 16:11 Na Date of admission: 12/26/18 17:54 Primary care physician: Ana Simpson MD Consults: 12/27/18 15:40 Consult to Occupational Therapy [CONS] Routine Comment: Evaluate, develop and implement POC Reason for Consult: ECF placement Does patient have active BEDREST order?: No Is patient medically & hemodynamically stable?: Yes Patient assessed for mobility or mobilized this visit?: Yes Consult to Physical Therapy [CONS] Routine Comment: Evaluate, develop and implement POC Reason for Consult: ECF placement Does patient have active BEDREST order?: No Is patient medically & hemodynamically stable?: Yes Patient assessed for mobility or mobilized this visit?: Yes 12/28/18 09:13 Consult to [employer] [CONS] Routine Reason for SW Consult: wants ecf Discharging clinician: Mary Kate De Dios - Constitutional Vitals: Temp Pulse Resp BP Pulse Ox 99.0 F 74 18 129/62 96 12/28/18 15:49 12/28/18 15:49 12/28/18 15:49 12/28/18 15:49 12/28/18 15:49 Exam: General: In no acute distress. Respiratory exam: CTAB. no accessory muscle use, rales, rhonchi, wheezes Cardiovascular exam: RRR, +S1, +S2. no murmur, gallop, rubs. GI/Abdominal exam: Non-tender, Non-distended, normal bowel sounds, soft, no peritoneal signs. Extremities exam: no pedal edema, pulses palpable in b/l lower extremities. no calf tenderness Neurological exam: CN II-XII intact, AO X1, no focal deficits within limited exam. Has poor memory . Skin exam: No skin rash - Patient Status Disposition: Transfer SNF Condition: Fair - Discharge Instructions Follow Up With: Ana Simpson MD [Primary Care Provider] - (ECF) - Diet and Activity Activity: as per physical therapy
--- NOTE | 2018-12-28 18:06 | Physician Discharge Referral ---
ExtendedCare Referral Info Institutional Level of Care: Skilled - Diagnosis (1) CAD (coronary artery disease) Status: Chronic (2) Dementia Status: Acute (3) Acute encephalopathy Status: Acute (4) CKD (chronic kidney disease) stage 3, GFR 30-59 ml/min Status: Acute (5) UTI (urinary tract infection) Status: Acute (6) Dehydration Status: Acute (7) History of DVT (deep vein thrombosis) Status: Chronic - Transfer Medications Prescriptions: Amoxicillin/Clavulanate [Augmentin] 875 mg PO BIDWM 5 Days #10 tablet Home Medications: Atorvastatin [Lipitor] 40 mg PO HS 03/26/17 [History] Gabapentin [Neurontin] 900 mg PO HS 03/26/17 [History] Pantoprazole Sodium [Protonix] 40 mg PO DAILY 03/26/17 [History] Pramipexole Di-HCl [Pramipexole Dihydrochloride] 0.125 mg PO HS 03/26/17 [History] Sertraline [Zoloft] 50 mg PO DAILY 03/26/17 [History] Memantine HCl/Donepezil HCl [Namzaric 28 mg-10 mg Capsule] 1 cap PO DAILY 06/21/17 [History] Cyanocobalamin (Vitamin B-12) [Vitamin B-12] 1,000 mcg PO DAILY 10/30/18 [History] Apixaban [Eliquis] 5 mg PO BID 12/26/18 [History] Sennosides/Docusate Sodium [Senna-Time S Tablet] 1 - 2 each PO DAILY 12/26/18 [History] Amoxicillin/Clavulanate [Augmentin] 875 mg PO BIDWM 5 Days #10 tablet 12/28/18 [Rx] Allergies/Adverse Reactions: Allergy/AdvReac Type Severity Reaction Status Date / Time hydrochlorothiazide AdvReac decreased Verified 12/27/18 16:11 Na - Respiratory Orders Smoking Cessation: Smoking cessation has been advised. For more information, call the [place] Tobacco Quit Line at 9-977-VLLL-NOW. CERTIFICATION: I certify that the transfer of the above named patient to an Extended Care Facility is necessary for the continuing treatment of the diagnosis listed. The above information is true and accurate reflection of patient's current condition. Confidential - Redisclosure prohibited without a patient's written consent.
--- NOTE | 2018-12-28 23:50 | Electrocardiograph Report ---
[facility] Test Date: 2018-12-26 Pat Name: Omaira Marcos Department: [id number] Room: 2A71 Gender: M Order Checker Packer Processer: : [id number] Requested By: [id number] Order Number: [id number] Reading MD: Ambra Mcclellan Measurements Intervals [place] Rate: 86 P: 46 LA: 219 QRS: -23 QRSD: 147 T: -68 QT: 417 QTc: 499 Interpretive Statements Sinus arrhythmia Multiple premature complexes, vent & supraven Borderline prolonged LA interval Right bundle branch block Electronically Signed On 12-28-2018 23:48:07 EDT by Ambar Mcclellan
== END 2018-12-28 19:33 ==
LOC: EMEROOARM 12:26 → 2ANU 12:26 → SUATTDRO 17:54 → 2ANU 19:02
PROVIDERS: ADMIT Student in an Organized Health Care Education/Training Program; ATTEND Internal Medicine